=== PATIENT | male | born 1930 | race Caucasian/White ===

== ENCOUNTER 2017-06-07 08:37 | Outpatient (CLI) | payer MEDICARE, BC ==
[2017-06-07] VITALS (10 sets, daily range): BP systolic 135–166; BP diastolic 61–80
[~2017-06-07] VITALS: Ht 160 cm; Wt 76.2 kg
[2017-06-07] MEDS ORDERED: IV 1/2 NORMAL SALINE 1,000 ML IV SCH (09:07)
[2017-06-07 09:24] LABS: HEMATOCRIT 43.6 % (39.0-53.0); RED BLOOD COUNT 5.06 x10^6/uL (4.30-5.70); RED CELL DISTRIBUTION WIDTH 14.4 % (11.5-14.5); WHITE BLOOD COUNT 7.3 x10^3/uL (4.0-11.0)
[2017-06-07 09:36] LABS: CALCIUM 9.6 mg/dL (8.5-10.1); CREATININE 1.2 mg/dL (0.7-1.3); GFR 57.3; POTASSIUM 4.2 mmol/L (3.5-5.1)
[2017-06-07] MEDS ORDERED: IV NORMAL SALINE 1000ML BAG 1,000 ML IV ONE (10:00)
[2017-06-07] MEDS ORDERED: CHOL10003 PO (11:03)
[2017-06-07] MEDS ORDERED: RIVA20TA2 PO (11:03)
[2017-06-07] MEDS ORDERED: AMLO1CAP12 PO (11:03)
[2017-06-07] MEDS ORDERED: METO25TA9 PO (11:03)
[2017-06-07] MEDS ORDERED: LEVO125T5 PO (11:03)
[2017-06-07] MEDS ORDERED: ESOM40CA PO (11:03)
[2017-06-07] MEDS ORDERED: SIMV20TA3 PO (11:03)
[2017-06-07] MEDS ORDERED: LIDOCAINE 2% 20 ML VIAL. ONE (11:05)
[2017-06-07] MEDS ORDERED: IODIXANOL 320 MG/ML 100 ML VIAL. ONE (11:05)
[2017-06-07] MEDS ORDERED: fentaNYL PF VIAL 100 MCG/2 ML VIAL ONE (11:12)
[2017-06-07] MEDS ORDERED: MIDAZOLAM HCL/PF 5 MG/5 ML VIAL. ONE (11:13)
[2017-06-07] MEDS ORDERED: HEPARIN for IV BOLUS 10,000 UNIT/10 ML VIAL. ONE (11:31)
[2017-06-07] MEDS ORDERED: LIDOCAINE 2% 20 ML VIAL. IJ ONE (11:45)
[2017-06-07] MEDS ORDERED: IODIXANOL 320 MG/ML 100 ML VIAL. IART ONE (11:45)
[2017-06-07] MEDS ORDERED: MIDAZOLAM HCL/PF 5 MG/5 ML VIAL. IV ONE (11:45)
[2017-06-07] MEDS ORDERED: HEPARIN for IV BOLUS 10,000 UNIT/10 ML VIAL. IV ONE (11:45)
[2017-06-07] MEDS ORDERED: fentaNYL PF VIAL 100 MCG/2 ML VIAL IV ONE (11:45)
--- NOTE | 2017-06-07 14:37 | RAD ---
APPROVED REPORT Patient Location: IN-PATIENT Exam Type: Ankle to Brachial Index Indications PAD Pressures/Indices RightABI LeftABI Brachial 146mmHgBrachial 135mmHg Ankle(DP) 0mmHgNON COMPRESSAnkle(DP) 0mmHgNON COMPRESS Findings Ankle-brachial indices are as noted above. Due to severe lower extremity below-knee arterial disease the pressures at the ankles bilaterally were unable to be obtained. Overall this is suggestive of sev ere arterial insufficiency bilaterally with an SHARAN less than 0.5. Critical Notification Critical Value: No <Conclusion> 1. Severely abnormal bilateral ankle-brachial indices with nonpalpable pulses at the ankle level and noncompressible vessels.
--- NOTE | 2017-06-07 15:36 | CARD ---
APPROVED REPORT Patient StatusOUT-PATIENT Component Prep Operator: RT Mesha (R) Procedure(s) performed: Sedation Time: 66 Minutes Aortogram Bilateral peripheral run-off. HISTORY The patient is a 86 year-old male with a history of : tobacco history() , hypertension, dyslipidemia. INDICATION FOR PROCEDURE The indication(s) include : Bilateral claudication. PROCEDURE NARRATIVE After appropriate informed consent the patient was brought to the catheterization laboratory. The lef t groin was prepped and draped in usual sterile fashion. Under 2% lidocaine local anesthesia and fluo roscopic guidance a 6 [place]an introducer sheath was placed in the left common femoral artery via the m odified Seldinger technique. Next, a 5 [place]an Omni Flush catheter was placed in the abdominal aorta a nd digital subtraction angiography was performed. Subsequently the Omni Flush catheter was used to di rect a J-tipped guidewire into the right common iliac system. The Omni Flush catheter was exchanged f or a 4 [place]an angled glide catheter which was then placed in the right distal external iliac artery a nd right lower cavity runoff was performed. Finally, a left lower extremity runoff was performed thro ugh sheath injections. Findings: Aorta: Mild ectasia prior to the bifurcation with significant calcification. RCIA: Mild calcified disease. RIIA: Has a 50% stenosis at its origin and the distal vessels severely diseased. REIA: Mild calcified plaque of less than 20%. RCFA: Moderate diffuse eccentriv plaque of at least 60% with extension into profunda and SFA. RSFA: Heavily calcified and ostially occluded. The distal vessel reconstitutes at the level or the ad ductor canal. RPROF: Dominant vessel in the thigh giving robust collaterals to the distal SFA via the geniculate sy stem. This vessel also has mild diffuse irregularities of up to 50%. RPOP: Mild diffuse irregularities of up to 30% RAT: Proximally occluded. The distal vessel reconsitutes and provides run-off to the dorsal pedis are a. RPT: Proximally occluded. The distal vessel is not well seen. RPER: Proximall occluded. The distal vessel fills via popliteal collaterals and has faint run-off. LCIA: Mild calcified disease. LIIA: Has a 50% stenosis at its origin and the distal vessels severely diseased. NATALIIA: Mild calcified plaque of less than 20%. LCFA: Moderate diffuse eccentric plaque of at least 60% with extension into profunda and SFA. LSFA: Heavily calcified and ostially occluded. The distal vessel reconstitutes at the level or the ad ductor canal. LPROF: Dominant vessel in the thigh giving robust collaterals to the distal SFA via the geniculate sy stem. This vessel also has mild diffuse irregularities of up to 50%. LPOP: Mild diffuse irregularities of up to 30% RAT: Proximally occluded. The distal vessel is not well seen. RPT: Proximally occluded. The distal vessel is not well seen. LPER: Proximall occluded. Not well visualized. Conclusion 1. Bilateral stacy category 4 claudication, right > left 2. 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 3. One vessel run-off of the RLE and no significant run-off below the knee of the LLE. Recommendations Vascular surgery evaluation for possible RCFA endarterectomy as he has failed PVI by his prior cardio logist. Supportive care.
--- NOTE | 2017-06-07 18:14 | PDOC2 ---
CONSULT Date of Consult Date of Consult DATE: 06/07/17 TIME: 18:05 Current Medications Current Medications Current Medications Sodium Chloride 1,000 ml @ 100 mls/hr Q10H IV Last administered on 06/07/17 09:07; Start 06/07/17 at 09:07; Stop 06/07/17 at 16:19; Status DC Sodium Chloride 1,000 ml @ 125 mls/hr 1X ONCE IV Last administered on 09:59; Start 06/07/17 at 10:00; Stop 06/07/17 at 16:19; Status DC Lidocaine HCl 20 ml STK-MED ONCE .ROUTE ; Start 06/07/17 at 11:05; Stop at 11:06; Status DC Heparin Sodium/ Sodium Chloride 1,000 ml @ As Directed STK-MED ONCE .ROUTE ; Start 06/07/17 at 11:05; Stop 06/07/17 at 11:06; Status DC Iodixanol (Visipaque 320) 100 ml STK-MED ONCE .ROUTE ; Start 06/07/17 at 11:05; Stop 06/07/17 at 11:06; Status DC Fentanyl Citrate (Fentanyl 2ml Vial) 100 mcg STK-MED ONCE .ROUTE ; Start at 11:12; Stop 06/07/17 at 11:13; Status DC Midazolam HCl (Versed) 5 mg STK-MED ONCE .ROUTE ; Start 06/07/17 at 11:13; Stop 06/07/17 at 11:14; Status DC Heparin Sodium (Porcine) (Heparin Sodium) 10,000 unit STK-MED ONCE .ROUTE ; Start 06/07/17 at 11:31; Stop 06/07/17 at 11:32; Status DC Heparin Sodium/ Sodium Chloride 1,000 unit 1X ONCE IART Last administered on 12:06; Start 06/07/17 at 11:45; Stop 06/07/17 at 11:46; Status DC Heparin Sodium/ Sodium Chloride 1,000 unit 1X ONCE IART Last administered on 12:06; Start 06/07/17 at 11:45; Stop 06/07/17 at 11:46; Status DC Midazolam HCl (Versed) 5 mg 1X ONCE IV Last administered on 06/07/17 12:07; Start 06/07/17 at 11:45; Stop 06/07/17 at 11:46; Status DC Fentanyl Citrate (Fentanyl 2ml Vial) 100 mcg 1X ONCE IV Last administered on 12:07; Start 06/07/17 at 11:45; Stop 06/07/17 at 11:46; Status DC Iodixanol (Visipaque 320) 100 ml 1X ONCE IART ; Start 06/07/17 at 11:45; Stop 06/07/17 at 11:46; Status DC Heparin Sodium (Porcine) (Heparin Sodium) 4,000 unit 1X ONCE IV Last administered on 06/07/17 12:22; Start 06/07/17 at 11:45; Stop 06/07/17 at 11:46 ; Status DC Lidocaine HCl 20 ml 1X ONCE IJ Last administered on 06/07/17 12:06; Start at 11:45; Stop 06/07/17 at 11:46; Status DC Active Scripts Active Reported Xarelto (Rivaroxaban) 20 Mg Tablet 20 Mg PO DAILY Vitamin D3 (Cholecalciferol (Vitamin D3)) 1,000 Unit Tablet 1 Tab PO DAILY Simvastatin 20 Mg Tablet 1 Tab PO QHS Nexium Capsule (Esomeprazole Magnesium) 40 Mg Capsule.dr 1 Cap PO DAILY Metoprolol Succinate ( Xl ) (Metoprolol Succinate) 25 Mg Tab.er.24h 1 Tab PO DAILY Levothyroxine Sodium 125 Mcg Tablet 1 Tab PO DAILY Amlodipine-Benazepril 10-20 Mg (Amlodipine Besylate/Benazepril) 1 Each Capsule 1 Cap PO DAILY Allergies Allergies: Coded Allergies: No Known Drug Allergies (Unverified , 06/07/17) Vitals VITALS Vital Signs Date Time Temp Pulse Resp B/P (MAP) Pulse Ox O2 Delivery O2 Flow Rate FiO2 06/07/17 15:07 67 18 95 Room Air 06/07/17 09:29 98.0 164/80 (108) 98.0 Labs Labs Laboratory Tests Test 06/07/17 09:00 White Blood Count 7.3 x10^3/uL (4.0-11.0) Red Blood Count 5.06 x10^6/uL (4.30-5.70) Hemoglobin 15.0 g/dL (13.0-17.5) Hematocrit 43.6 % (39.0-53.0) Mean Corpuscular Volume 86 fL (79-100) Mean Corpuscular Hemoglobin 30 pg (25-35) Mean Corpuscular Hemoglobin Concent 34 g/dL (31-37) Red Cell Distribution Width 14.4 % (11.5-14.5) Platelet Count 179 x10^3/uL (140-400) Prothrombin Time 13.0 SEC (11.7-14.0) Prothromb Time International Ratio 1.0 (0.8-1.1) Sodium Level 142 mmol/L (136-145) Potassium Level 4.2 mmol/L (3.5-5.1) Chloride Level 104 mmol/L (98-107) Carbon Dioxide Level 27 mmol/L (21-32) Anion Gap 11 (6-14) Blood Urea Nitrogen 18 mg/dL (8-26) Creatinine 1.2 mg/dL (0.7-1.3) Estimated GFR (Cockcroft-Gault) 57.3 Glucose Level 108 mg/dL (70-99) Calcium Level 9.6 mg/dL (8.5-10.1) Laboratory Tests Test 06/07/17 09:00 White Blood Count 7.3 x10^3/uL (4.0-11.0) Red Blood Count 5.06 x10^6/uL (4.30-5.70) Hemoglobin 15.0 g/dL (13.0-17.5) Hematocrit 43.6 % (39.0-53.0) Mean Corpuscular Volume 86 fL (79-100) Mean Corpuscular Hemoglobin 30 pg (25-35) Mean Corpuscular Hemoglobin Concent 34 g/dL (31-37) Red Cell Distribution Width 14.4 % (11.5-14.5) Platelet Count 179 x10^3/uL (140-400) Prothrombin Time 13.0 SEC (11.7-14.0) Prothromb Time International Ratio 1.0 (0.8-1.1) Sodium Level 142 mmol/L (136-145) Potassium Level 4.2 mmol/L (3.5-5.1) Chloride Level 104 mmol/L (98-107) Carbon Dioxide Level 27 mmol/L (21-32) Anion Gap 11 (6-14) Blood Urea Nitrogen 18 mg/dL (8-26) Creatinine 1.2 mg/dL (0.7-1.3) Estimated GFR (Cockcroft-Gault) 57.3 Glucose Level 108 mg/dL (70-99) Calcium Level 9.6 mg/dL (8.5-10.1) Assessment/Plan Assessment/Plan Vascular consult dictated. Imp: 1. disabling claudication right leg, mild claudication left leg 2. 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 Superficial femoral artery is occluded. 3. hx of tobaccosism Plan: angio reviewed and options discussed with patient during his outpatient cath. procedure 1. right common and origin profunda femoral endarterectomy with patch closure, elective. LISSETTE HOOKER II, MD Jun 07, 2017 18:14
--- NOTE | 2017-06-07 20:22 | CONS ---
DATE OF CONSULTATION: CLINICAL HISTORY: This is an 86-year-old gentleman, who has disabling claudication of the right leg and mild claudication of the left leg. He presented today for outpatient catheterization by Dr. Blandon. The images were reviewed. 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 The right superficial femoral artery was occluded. There was single vessel runoff via the anterior tibial artery on the right. The patient has isyj-an-ydoontpt stenotic lesions, affecting the left common femoral artery as well, again with left superficial femoral artery occlusion. He is not symptomatic, however, in his right leg. PAST MEDICAL HISTORY: Reviewed. MEDICATIONS: He is on medications as follows: Xarelto, simvastatin, metoprolol, levothyroxine, and amlodipine. ALLERGIES: None known. REVIEW OF SYSTEMS: Other than what was mentioned in the history, is negative. He denies chest pain or shortness of breath. He denies any history of atherosclerotic heart disease or stroke. PHYSICAL EXAMINATION: GENERAL: The patient is alert and awake. NECK: Carotids are 2+. ABDOMEN: Soft and nontender. CHEST: Clear. CARDIOVASCULAR: Heart sounds are normal. EXTREMITIES: He has absent bilateral femoral pulses, absent popliteal and pedal pulses. IMPRESSION: 1. Disabling claudication of the right leg with mild claudication of the left leg. 2. 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 3. Hypertension, hypertension. PLAN: Proceed with elective right common femoral artery and proximal profunda femoris artery endarterectomy with bovine patch. He has excellent collaterals and it is hopeful that this will provide enough antegrade flow to relieve his symptoms for the most part. We will schedule electively. LISSETTE HOOKER MD DR: JOESPH/nicolle JOB#: [id number] / [id number]
== END 2017-06-07 15:40 | disposition home or self-care (01) ==
LOC: CCL 08:37
PROVIDERS: ATTEND Internal Medicine Cardiovascular Disease
DX: I70.213 Atherosclerosis of native arteries of extremities with intermittent claudication, bilateral legs (principal); I10 Essential (primary) hypertension; E78.5 Hyperlipidemia, unspecified; I77.819 Aortic ectasia, unspecified site; I73.9 Peripheral vascular disease, unspecified; K21.9 Gastro-esophageal reflux disease without esophagitis; E03.9 Hypothyroidism, unspecified; F17.200 Nicotine dependence, unspecified, uncomplicated; Z86.39 Personal history of other endocrine, nutritional and metabolic disease
CPT/HCPCS: 36415; 75630; 80048; 85027; 85610; 93922; 99152; 99153; C1769; C1892; J1644; J2250; J3010; J7030; Q9966; J2001

== ENCOUNTER 2017-06-11 07:30 | Inpatient (IN) | payer MEDICARE, BC ==
[~2017-06-11] VITALS: Ht 160 cm; Wt 72.3 kg
[~2017-06-11 07:30] MED LIST: AMLO1CAP12 PO; CHOL10003 PO; ESOM40CA PO; LEVO125T5 PO; METO-239 PO; RIVA20TA2 PO; SIMV20TA3 PO
[2017-07-24] MEDS ORDERED: MORPHINE SULFATE 4 MG/ML DISP.SYRIN. IV PRN (12:15)
[2017-07-25] VITALS (9 sets, daily range): BP systolic 111–137; BP diastolic 59–68
[2017-07-25] MEDS ORDERED: HEPARIN SODIUM 5,000 UNIT in IV NORMAL SALINE 500ML BAG 500 ML IRR ONE (06:00)
[2017-07-25] MEDS ORDERED: IOHEXOL 300 MG/ML 50 ML VIAL. ONE (06:03)
[2017-07-25] MEDS ORDERED: SURGICEL FIBRILLAR 1X2 EACH. ONE (06:03)
[2017-07-25] MEDS ORDERED: fentaNYL PF VIAL 100 MCG/2 ML VIAL ONE (06:23)
[2017-07-25] MEDS ORDERED: LIDOCAINE 2% PF Vial for OR 5 ML VIAL. ONE (06:23)
[2017-07-25] MEDS ORDERED: PROPOFOL 20 ML IV ONE (06:23)
[2017-07-25] MEDS ORDERED: ONDANSETRON PF 4 MG/2 ML VIAL. ONE (06:23)
[2017-07-25] MEDS ORDERED: DEXAMETHASONE SOD PHOS 20 MG/5 ML VIAL. ONE (06:23)
[2017-07-25] MEDS ORDERED: ASPI-482 PO (06:46)
[2017-07-25 06:51] LABS: BASO # 0.1 x10^3/uL (0.0-0.2); BASO % 1 % (0-3); EOS % 4 % (0-3); HEMATOCRIT 45.4 % (39.0-53.0); HEMOGLOBIN 15.4 g/dL (13.0-17.5); LYMPH # 1.4 x10^3/uL (1.0-4.8); LYMPH % 18 % (24-48); MEAN CORPUSCULAR HEMOGLOBIN 29 pg (25-35); MEAN CORPUSCULAR HGB CONC 34 g/dL (31-37); MEAN CORPUSCULAR VOLUME 86 fL (79-100); MONO % 10 % (0-9); NEUT % 66 % (31-73); PLATELET COUNT 177 x10^3/uL (140-400); RED BLOOD COUNT 5.25 x10^6/uL (4.30-5.70); RED CELL DISTRIBUTION WIDTH 14.2 % (11.5-14.5); WHITE BLOOD COUNT 7.5 x10^3/uL (4.0-11.0)
[2017-07-25 06:52] LABS: CALCIUM 9.9 mg/dL (8.5-10.1); CREATININE 1.2 mg/dL (0.7-1.3); GFR 57.3; POTASSIUM 4.3 mmol/L (3.5-5.1)
[2017-07-25] MEDS ORDERED: PROCHLORPERAZINE 10 MG/2 ML VIAL. IV PRN (07:00)
[2017-07-25] MEDS ORDERED: IV RINGERS,LACTATED 1000ML 1,000 ML IV SCH (07:00)
[2017-07-25] MEDS ORDERED: ONDANSETRON PF 4 MG/2 ML VIAL. IV PRN ×2 (07:00→10:45)
[2017-07-25] MEDS ORDERED: HYDROmorphone 2 MG/ML VIAL IV PRN (07:00)
[2017-07-25] MEDS ORDERED: LIDOCAINE 1% PF 2 ML VIAL. ID PRN (07:00)
[2017-07-25] MEDS ORDERED: fentaNYL PF VIAL 100 MCG/2 ML VIAL IV PRN ×2 (07:00)
[2017-07-25] MEDS ORDERED: ROCURONIUM 100 MG/10 ML VIAL. ONE (07:13)
[2017-07-25] MEDS ORDERED: PHENYLEPHRINE in 0.9% NACL PF 1 MG/10 ML DISP.SYRIN. IV ONE ×2 (07:44→10:18)
[2017-07-25] MEDS ORDERED: HEPARIN for IV BOLUS 10,000 UNIT/10 ML VIAL. ONE (08:00)
[2017-07-25] MEDS ORDERED: NEOSTIGMINE METHYLSULFATE 5 MG/5 ML SYRINGE. ONE (08:50)
[2017-07-25] MEDS ORDERED: DESFLURANE 61 TO 120 MINUTES IH ONE (08:51)
[2017-07-25] MEDS ORDERED: GLYCOPYRROLATE 1 MG/5 ML VIAL. ONE (08:51)
--- NOTE | 2017-07-25 10:40 | PDOC ---
BRIEF OPERATIVE NOTE Date: Jul 25, 2017 Pre-Op Diagnosis Right femoral stenosis Post-Op Diagnosis same Procedure Performed Right common femoral endarterectomy with bovine patch angioplasty Surgeon Dr. Hook Channel Lip Stiffener Insoles Kedar Rivers NP Anesthesia Type: General Blood Loss 500cc Specimens Obtained none Findings severe femoral stenosis, Complications none KEDAR RIVERS DELIVERY TECHNICIAN Jul 25, 2017 10:40
[2017-07-25] MEDS ORDERED: MORPHINE SULFATE 4 MG/ML DISP.SYRIN. IV PRN (10:45)
[2017-07-25] MEDS ORDERED: MAG HYDROX/ALUMINUM HYD/SIMETH 30 ML ORAL.SUSP PO PRN (10:45)
[2017-07-25] MEDS ORDERED: LABETALOL 20 MG/4 ML DISP.SYRIN. IVP PRN (10:45)
[2017-07-25] MEDS ORDERED: NALOXONE 0.4 MG/ML VIAL. IV PRN (10:45)
[2017-07-25] MEDS ORDERED: hydrALAZINE 20 MG/ML VIAL. IVP PRN (10:45)
[2017-07-25] MEDS ORDERED: diphenhydrAMINE HCL 25 MG CAPSULE PO PRN (10:45)
[2017-07-25] MEDS ORDERED: CALCIUM CARBONATE 500 MG TAB.CHEW PO PRN (10:45)
[2017-07-25] MEDS ORDERED: oxyCODONE IR 5 MG TABLET PO PRN (10:45)
[2017-07-25] MEDS ORDERED: ACETAMINOPHEN 325 MG TABLET. PO PRN (10:45)
[2017-07-25] MEDS ORDERED: 0.9 % SODIUM CHLORIDE 10 ML DISP.SYRIN. IV PRN (10:45)
[2017-07-25] MEDS ORDERED: oxyCODONE/APAP 5/325 1 TAB TABLET PO PRN ×2 (10:45)
[2017-07-25] MEDS ORDERED: diphenhydrAMINE 50 MG/ML VIAL IV PRN (10:45)
[2017-07-25] MEDS: LISINOPRIL 20 MG TABLET PO SCH (12:00)
[2017-07-25] MEDS: amLODIPine BESYLATE 10 MG TABLET PO SCH (12:00)
[2017-07-25] MEDS: ASPIRIN ENTERIC COATED 81 MG TABLET.DR. PO SCH (12:00)
[2017-07-25] MEDS: IV NORMAL SALINE 1000ML BAG 1,000 ML IV SCH ×2 (12:15→20:31)
[2017-07-25] MEDS: CHOLECALCIFEROL (VITAMIN D3) 1,000 UNIT TABLET PO SCH (12:16)
[2017-07-25] MEDS: SENNOSIDES/DOCUSATE 8.6/50MG TABLET. PO SCH ×2 (12:16→20:55)
[2017-07-25] MEDS: METOPROLOL SUCC 24HR ER 25 MG TAB.ER.24H. PO SCH (12:16)
--- NOTE | 2017-07-25 13:40 | OP ---
DATE OF SURGERY: 07/25/2017 PREOPERATIVE DIAGNOSIS: Arterial insufficiency of the right lower extremity due to severe preocclusive common femoral and profunda femoris plaque. POSTOPERATIVE DIAGNOSIS: Arterial insufficiency of the right lower extremity due to severe preocclusive common femoral and profunda femoris plaque. OPERATIONS PERFORMED: Extensive endarterectomy of the distal external iliac, common femoral and profunda femoris arteries with bovine patch angioplasty. SURGEON: Lissette Hooker MD. STEAM TABLE WORKER: FERCHO Jiang. ANESTHESIA: General. ESTIMATED BLOOD LOSS: 500 mL. SPECIMENS: Plaque, not sent to pathology. DRAINS: None. INDICATIONS: This is a gentleman who has lifestyle limiting claudication of the right lower extremity, worse than the left. He underwent cardiac catheterization and angiographic evaluation. This revealed a preocclusive stenosis, diffuse, of the right common femoral artery, and extending into the origin of the profunda femoris arteries. The superficial femoral artery is occluded at its origin. The operation risks and benefits were explained. He understood and wished to proceed. OPERATIVE FINDINGS: Extensive severe cauliflower type plaque, extending from the distal external iliac artery to the third branch point of the profunda femoris artery. This required extensive endarterectomy. A pantaloon patch angioplasty was performed of the vessels using a bovine patch. Following the procedure, the patient had Doppler arterial flow in the foot. DESCRIPTION OF PROCEDURE: General anesthetic was administered and a Ling catheter was placed. The patient was given 2 mg of IV antibiotics. The right groin was prepped and draped in usual manner. An Ioban occlusive dressing was placed over the skin. The femoral pulse was not palpable. An incision was made in the right groin longitudinally. The vessel was palpated, but not pulsatile. It was extremely calcified. The inguinal ligament was divided and a mechanical retractor was placed for proximal control. Some crossing veins were ligated and divided. The distal external iliac artery, just beyond 2 large branches contained a soft spot anteriorly. A vessel loop was placed in this location. All branches were then isolated and encircled with vessel loops. The profunda had 2 main branches, a deep and a lateral branch. There was extreme calcification in those branches, extending down to the secondary level branching. This was all dissected out. The femoral nerve was carefully identified and preserved. The crossing vein branches were ligated and divided. The patient was then given 5000 units of heparin. A Satinsky clamp was placed on the distal external iliac artery. An arteriotomy was then chiseled into the anterior common femoral artery and then extended proximally and distally. Distally, it was extended for approximately an qskk-yfr-n-half down onto the main lateral branch of the profunda femoris artery. A meticulous endarterectomy was performed of all of these vessels. The plaque was extensive and the remaining adventitia were quite thin. A bovine patch was then placed. The distal was obtained on the profunda and was felt to be a satisfactory, with no significant . Again there were 2 main branches of the deep femoral artery. A bovine patch was then sutured into place using a 6-0 Prolene. Prior to completing the patch closure, the vessels were flushed appropriately. Flow was then restored. No protamine was given. The wounds were irrigated with antibiotic irrigation. Suture line leaks were repaired with interrupted 6-0 Prolene sutures. Doppler flow was then assessed in the outflow profunda femoris arteries and the flow was continuous, nonocclusive. Copious irrigation with antibiotic solution was then carried out. The wound was then closed in 2 layers with 2-0 and 3-0 Vicryl, the skin with kimberly. Sterile dressings were applied. Doppler flow then was assessed in the foot as above. The patient tolerated the procedure well. LISSETTE HOOKER MD DR: JOESPH/nicolle JOB#: [id number] / [id number]
[2017-07-25] MEDS: PANTOPRAZOLE 40 MG TABLET.DR. PO SCH (16:56)
[2017-07-25] MEDS: ATORVASTATIN CALCIUM 10 MG TABLET. PO SCH (20:56)
[2017-07-25] MEDS: ZOLPIDEM 5 MG TABLET. PO PRN (23:09)
[2017-07-26 02:44] VITALS: BP 101/49
[2017-07-26] MEDS: IV NORMAL SALINE 1000ML BAG 1,000 ML IV SCH (05:42)
[2017-07-26] MEDS: LEVOTHYROXINE 125 MCG TABLET PO SCH (06:25)
[2017-07-26] MEDS: PANTOPRAZOLE 40 MG TABLET.DR. PO SCH (06:25)
[2017-07-26 07:00] VITALS: BP 142/64
[2017-07-26 07:16] LABS: BASO % 0 % (0-3); EOS % 0 % (0-3); HEMATOCRIT 37.9 % (39.0-53.0); HEMOGLOBIN 12.7 g/dL (13.0-17.5); LYMPH # 0.8 x10^3/uL (1.0-4.8); LYMPH % 7 % (24-48); MEAN CORPUSCULAR HEMOGLOBIN 29 pg (25-35); MEAN CORPUSCULAR HGB CONC 34 g/dL (31-37); MEAN CORPUSCULAR VOLUME 87 fL (79-100); MONO % 9 % (0-9); NEUT % 83 % (31-73); PLATELET COUNT 164 x10^3/uL (140-400); RED BLOOD COUNT 4.36 x10^6/uL (4.30-5.70); WHITE BLOOD COUNT 11.5 x10^3/uL (4.0-11.0)
[2017-07-26 07:27] LABS: CALCIUM 9.1 mg/dL (8.5-10.1); CREATININE 1.1 mg/dL (0.7-1.3); GFR 63.3; MAGNESIUM 1.9 mg/dL (1.8-2.4); PHOSPHORUS 3.7 mg/dL (2.6-4.7); POTASSIUM 4.3 mmol/L (3.5-5.1)
[2017-07-26] MEDS: amLODIPine BESYLATE 10 MG TABLET PO SCH (08:45)
[2017-07-26] MEDS: SENNOSIDES/DOCUSATE 8.6/50MG TABLET. PO SCH ×2 (08:45→20:18)
[2017-07-26] MEDS: CHOLECALCIFEROL (VITAMIN D3) 1,000 UNIT TABLET PO SCH (08:45)
[2017-07-26] MEDS: METOPROLOL SUCC 24HR ER 25 MG TAB.ER.24H. PO SCH (08:45)
[2017-07-26] MEDS: ASPIRIN ENTERIC COATED 81 MG TABLET.DR. PO SCH (08:45)
[2017-07-26] MEDS: LISINOPRIL 20 MG TABLET PO SCH (09:00)
[2017-07-26] MEDS ORDERED: ELECTROLYTE (NON-ICU) PROTOCOL MC SCH (09:00)
[2017-07-26 11:00] VITALS: BP 134/60
[2017-07-26] MEDS ORDERED: FLU VACC QS2017-18 (36MOS+)/PF 0.5 ML SYRINGE. VAX IM ONE (12:15)
--- NOTE | 2017-07-26 14:50 | PDOC ---
SURGICAL PROGRESS NOTE Subjective no complaints. Hasn't voided yet post cath removal. Ambulating some Vital Signs Vital Signs Date Time Temp Pulse Resp B/P (MAP) Pulse Ox O2 Delivery O2 Flow Rate FiO2 07/26/17 12:00 94 Room Air 2.0 07/26/17 11:02 18 07/26/17 11:00 98.1 64 134/60 (84) 98.1 I&O Intake and Output 07/27/17 07:00 Intake Total 220 ml Output Total 425 ml Balance -205 ml Intake Oral 220 ml Output Urine Total 425 ml Extremities: Other (right foot warm with excellent doppler flow. Dressing right groin dry) Labs Laboratory Tests Test 07/25/17 06:29 07/26/17 06:55 White Blood Count 7.5 x10^3/uL (4.0-11.0) 11.5 x10^3/uL (4.0-11.0) Red Blood Count 5.25 x10^6/uL (4.30-5.70) 4.36 x10^6/uL (4.30-5.70) Hemoglobin 15.4 g/dL (13.0-17.5) 12.7 g/dL (13.0-17.5) Hematocrit 45.4 % (39.0-53.0) 37.9 % (39.0-53.0) Mean Corpuscular Volume 86 fL (79-100) 87 fL (79-100) Mean Corpuscular Hemoglobin 29 pg (25-35) 29 pg (25-35) Mean Corpuscular Hemoglobin Concent 34 g/dL (31-37) 34 g/dL (31-37) Red Cell Distribution Width 14.2 % (11.5-14.5) 14.0 % (11.5-14.5) Platelet Count 177 x10^3/uL (140-400) 164 x10^3/uL (140-400) Neutrophils (%) (Auto) 66 % (31-73) 83 % (31-73) Lymphocytes (%) (Auto) 18 % (24-48) 7 % (24-48) Monocytes (%) (Auto) 10 % (0-9) 9 % (0-9) Eosinophils (%) (Auto) 4 % (0-3) 0 % (0-3) Basophils (%) (Auto) 1 % (0-3) 0 % (0-3) Neutrophils # (Auto) 4.9 x10^3uL (1.8-7.7) 9.5 x10^3uL (1.8-7.7) Lymphocytes # (Auto) 1.4 x10^3/uL (1.0-4.8) 0.8 x10^3/uL (1.0-4.8) Monocytes # (Auto) 0.8 x10^3/uL (0.0-1.1) 1.1 x10^3/uL (0.0-1.1) Eosinophils # (Auto) 0.3 x10^3/uL (0.0-0.7) 0.0 x10^3/uL (0.0-0.7) Basophils # (Auto) 0.1 x10^3/uL (0.0-0.2) 0.0 x10^3/uL (0.0-0.2) Prothrombin Time 13.0 SEC (11.7-14.0) Prothromb Time International Ratio 1.0 (0.8-1.1) Activated Partial Thromboplast Time 27 SEC (24-38) Sodium Level 142 mmol/L (136-145) 138 mmol/L (136-145) Potassium Level 4.3 mmol/L (3.5-5.1) 4.3 mmol/L (3.5-5.1) Chloride Level 106 mmol/L (98-107) 103 mmol/L (98-107) Carbon Dioxide Level 25 mmol/L (21-32) 27 mmol/L (21-32) Anion Gap 11 (6-14) 8 (6-14) Blood Urea Nitrogen 18 mg/dL (8-26) 18 mg/dL (8-26) Creatinine 1.2 mg/dL (0.7-1.3) 1.1 mg/dL (0.7-1.3) Estimated GFR (Cockcroft-Gault) 57.3 63.3 Glucose Level 122 mg/dL (70-99) 136 mg/dL (70-99) Calcium Level 9.9 mg/dL (8.5-10.1) 9.1 mg/dL (8.5-10.1) Phosphorus Level 3.7 mg/dL (2.6-4.7) Magnesium Level 1.9 mg/dL (1.8-2.4) Laboratory Tests Test 07/26/17 06:55 White Blood Count 11.5 x10^3/uL (4.0-11.0) Red Blood Count 4.36 x10^6/uL (4.30-5.70) Hemoglobin 12.7 g/dL (13.0-17.5) Hematocrit 37.9 % (39.0-53.0) Mean Corpuscular Volume 87 fL (79-100) Mean Corpuscular Hemoglobin 29 pg (25-35) Mean Corpuscular Hemoglobin Concent 34 g/dL (31-37) Red Cell Distribution Width 14.0 % (11.5-14.5) Platelet Count 164 x10^3/uL (140-400) Neutrophils (%) (Auto) 83 % (31-73) Lymphocytes (%) (Auto) 7 % (24-48) Monocytes (%) (Auto) 9 % (0-9) Eosinophils (%) (Auto) 0 % (0-3) Basophils (%) (Auto) 0 % (0-3) Neutrophils # (Auto) 9.5 x10^3uL (1.8-7.7) Lymphocytes # (Auto) 0.8 x10^3/uL (1.0-4.8) Monocytes # (Auto) 1.1 x10^3/uL (0.0-1.1) Eosinophils # (Auto) 0.0 x10^3/uL (0.0-0.7) Basophils # (Auto) 0.0 x10^3/uL (0.0-0.2) Sodium Level 138 mmol/L (136-145) Potassium Level 4.3 mmol/L (3.5-5.1) Chloride Level 103 mmol/L (98-107) Carbon Dioxide Level 27 mmol/L (21-32) Anion Gap 8 (6-14) Blood Urea Nitrogen 18 mg/dL (8-26) Creatinine 1.1 mg/dL (0.7-1.3) Estimated GFR (Cockcroft-Gault) 63.3 Glucose Level 136 mg/dL (70-99) Calcium Level 9.1 mg/dL (8.5-10.1) Phosphorus Level 3.7 mg/dL (2.6-4.7) Magnesium Level 1.9 mg/dL (1.8-2.4) Assessment/Plan Imp: stable post op right femoral endarterectomy with patch angioplasty Plan: probable discharge in am. f/u in 2 weeks. Problems: LISSETTE HOOKER II, MD Jul 26, 2017 14:50
[2017-07-26 15:00] VITALS: BP 103/53
[2017-07-26 19:16] VITALS: BP 144/70
[2017-07-26] MEDS: ATORVASTATIN CALCIUM 10 MG TABLET. PO SCH (20:18)
[2017-07-26] MEDS: ZOLPIDEM 5 MG TABLET. PO PRN (22:16)
[2017-07-26 23:21] VITALS: BP 136/65
[2017-07-27 03:26] VITALS: BP 118/71
[2017-07-27] MEDS: LEVOTHYROXINE 125 MCG TABLET PO SCH (06:22)
[2017-07-27] MEDS: PANTOPRAZOLE 40 MG TABLET.DR. PO SCH (06:22)
[2017-07-27 07:00] VITALS: BP 138/70
--- NOTE | 2017-07-27 07:54 | PDOC ---
SURGICAL PROGRESS NOTE Subjective no complaints. Voiding ok, Ambulating Vital Signs Vital Signs Date Time Temp Pulse Resp B/P (MAP) Pulse Ox O2 Delivery O2 Flow Rate FiO2 07/27/17 06:28 20 97 Room Air 07/27/17 03:26 98.1 69 118/71 (87) 98.1 07/26/17 20:00 2.0 Extremities: Other (dressing dry, warm foot, good doppler flow) Labs Laboratory Tests Test 07/26/17 06:55 White Blood Count 11.5 x10^3/uL (4.0-11.0) Red Blood Count 4.36 x10^6/uL (4.30-5.70) Hemoglobin 12.7 g/dL (13.0-17.5) Hematocrit 37.9 % (39.0-53.0) Mean Corpuscular Volume 87 fL (79-100) Mean Corpuscular Hemoglobin 29 pg (25-35) Mean Corpuscular Hemoglobin Concent 34 g/dL (31-37) Red Cell Distribution Width 14.0 % (11.5-14.5) Platelet Count 164 x10^3/uL (140-400) Neutrophils (%) (Auto) 83 % (31-73) Lymphocytes (%) (Auto) 7 % (24-48) Monocytes (%) (Auto) 9 % (0-9) Eosinophils (%) (Auto) 0 % (0-3) Basophils (%) (Auto) 0 % (0-3) Neutrophils # (Auto) 9.5 x10^3uL (1.8-7.7) Lymphocytes # (Auto) 0.8 x10^3/uL (1.0-4.8) Monocytes # (Auto) 1.1 x10^3/uL (0.0-1.1) Eosinophils # (Auto) 0.0 x10^3/uL (0.0-0.7) Basophils # (Auto) 0.0 x10^3/uL (0.0-0.2) Sodium Level 138 mmol/L (136-145) Potassium Level 4.3 mmol/L (3.5-5.1) Chloride Level 103 mmol/L (98-107) Carbon Dioxide Level 27 mmol/L (21-32) Anion Gap 8 (6-14) Blood Urea Nitrogen 18 mg/dL (8-26) Creatinine 1.1 mg/dL (0.7-1.3) Estimated GFR (Cockcroft-Gault) 63.3 Glucose Level 136 mg/dL (70-99) Calcium Level 9.1 mg/dL (8.5-10.1) Phosphorus Level 3.7 mg/dL (2.6-4.7) Magnesium Level 1.9 mg/dL (1.8-2.4) Assessment/Plan Imp: 1. doing well post op Plan: discharge today. F/u in 2 weeks. Instructions given. Problems: LISSETTE HOOKER II, MD Jul 27, 2017 07:54
--- NOTE | 2017-07-27 08:21 | DS ---
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 OPERATION PERFORMED: Right external iliac, common femoral and profunda femoris extensive endarterectomy with bovine patch angioplasty. SUMMARY: This is a pleasant 86-year-old gentleman who has disabling claudication of the right leg due to the above. He underwent the procedure as listed above. He did well post procedure. He was discharged on postoperative day #2. At that time, he was eating, ambulating, flatulating. His incision is healing satisfactorily and he has a nice warm foot. DISPOSITION: Home. Follow up in 2 weeks. Discharge instructions were given. He is to resume all of his prehospital medications plus [place] for pain. ROWENA MIRELES MD DR: FRANCISCO/nicolle JOB#: [id number] / [id number]
[2017-07-27] MEDS: ASPIRIN ENTERIC COATED 81 MG TABLET.DR. PO SCH (08:38)
[2017-07-27] MEDS: METOPROLOL SUCC 24HR ER 25 MG TAB.ER.24H. PO SCH (08:38)
[2017-07-27] MEDS: CHOLECALCIFEROL (VITAMIN D3) 1,000 UNIT TABLET PO SCH (08:38)
[2017-07-27] MEDS: SENNOSIDES/DOCUSATE 8.6/50MG TABLET. PO SCH (08:38)
[2017-07-27 08:39] VITALS: BP 138/70
[2017-07-27] MEDS: LISINOPRIL 20 MG TABLET PO SCH (08:39)
[2017-07-27] MEDS: amLODIPine BESYLATE 10 MG TABLET PO SCH (08:39)
[2017-07-27] MEDS ORDERED: HYDR-2758 PO ×3 (09:23→09:28)
== END 2017-07-27 10:30 | disposition home or self-care (01) | DRG 271 ==
LOC: OPSVCIP 07-25 05:43 → 2 NORTH 07-25 11:42
PROVIDERS: ADMIT Surgery; ATTEND Surgery
PROC: 04CK0ZZ Extirpation of Matter from Right Femoral Artery, Open Approach (ICD-10-PCS; 2017-07-25)
PROC: 04UK0KZ Supplement Right Femoral Artery with Nonautologous Tissue Substitute, Open Approach (ICD-10-PCS; 2017-07-25)
PROC: 04CH0ZZ Extirpation of Matter from Right External Iliac Artery, Open Approach (ICD-10-PCS; principal; 2017-07-25 07:30)
DX: I70.211 Atherosclerosis of native arteries of extremities with intermittent claudication, right leg (principal); R71.0 Precipitous drop in hematocrit
CPT/HCPCS: 36415; 80048; 83735; 84100; 85025; 85610; 85730; 90686; 93306; J0360; J0690; J1100; J1644; J2370; J2405; J2704; J2710; J3010; J3490; J7030; J7040; J7120; Q9967; J2001

== ENCOUNTER → 2017-07-23 | Outpatient (CLI) | payer MEDICARE, BC ==
[2017-06-07 15:07] VITALS: BP 166/72
[~2017-07-23] MED LIST changes: +ASPI-482 PO; +HYDR-2758 PO
--- NOTE | 2017-07-23 12:27 | CARD ---
APPROVED REPORT EXAM: Two-dimensional and M-mode echocardiogram with Doppler and color Doppler. Other Information Quality : Good INDICATION Aortic Valve Disease Peripheral Arterial Disease 2D DIMENSIONS RVDd2.6 (2.9-3.5cm)Left Atrium(2D)3.7 (1.6-4.0cm) IVSd1.1 (0.7-1.1cm)Aortic Root(2D)2.9 (2.0-3.7cm) LVDd4.2 (3.9-5.9cm)LVOT Diameter1.9 (1.8-2.4cm) PWd1.2 (0.7-1.1cm)LVDs2.0 (2.5-4.0cm) FS (%) 30.0 %SV64.7 ml LVEF(%)60.0 (>50%) Aortic Valve AoV Peak John.315.4cm/sAoV VTI72.2cm AO Peak GR.39.8mmHgLVOT Peak John.111.5cm/s AO Mean GR.25mmHgAVA (VMAX)1.03cm2 EMORY (VTI)1.63ql0SY P 1/2 [id number] Mitral Valve MV E Hfqxttij531.8cm/sMV DECEL [id number] MV A Quixfszv252.5cm/sE/A Ratio0.9 Tricuspid Valve TR P. Jhsbfvdu192wm/sRAP OQOFWDYO8euPu TR Peak Gr.44wpYgPTSA27jgIc Pulmonary Vein S1 Cijjdxqt94.2cm/sD2 Hppnoxad26.3cm/s PVa [id number] LEFT VENTRICLE The left ventricle is normal size. There is mild asymmetric posterior wall hypertrophy. The left vent ricular systolic function is normal. The ejection fraction is 55-60%. There is normal LV segmental wa ll motion. Transmitral Doppler flow pattern is Grade I-abnormal relaxation pattern. RIGHT VENTRICLE The right ventricle is normal size. The right ventricular systolic function is normal. ATRIA The left atrium size is normal. The right atrium size is normal. The interatrial septum is intact wit h no evidence for an atrial septal defect or patent foramen ovale as noted on 2-D or Doppler imaging. AORTIC VALVE The aortic valve is calcified and displays decreased opening. Doppler and Color Flow revealed mild to moderate aortic regurgitation. Calculated aortic valve area is 1.0 cm2 with maximum pressure gradien t of 40 mmHg and mean pressure gradient of 25 mmHg. Doppler and color-flow analysis revealed moderate aortic stenosis. MITRAL VALVE The mitral valve is mildly thickened but opens well. There is no evidence of mitral valve prolapse. T here is no mitral valve stenosis. Doppler and Color-flow revealed trace to mild mitral regurgitation. TRICUSPID VALVE The tricuspid valve is normal in structure and function. Doppler and Color Flow revealed trace to mil d tricuspid regurgitation. The PA pressure was estimated at 38 mmHg. There is no tricuspid valve sten osis. PULMONIC VALVE The pulmonary valve is normal in structure and function. Doppler and Color Flow revealed mild pulmoni c valvular regurgitation. There is no pulmonic valvular stenosis. GREAT VESSELS The aortic root is normal in size. The ascending aorta is mildly dilated at 3.9 cm. The IVC was not v isualized. PERICARDIAL EFFUSION There is no evidence of significant pericardial effusion. Critical Notification Critical Value: No <Conclusion> The left ventricle is normal size. The left ventricular systolic function is normal. The ejection fraction is 55-60%. There is mild asymmetric posterior wall hypertrophy. The aortic valve is calcified and displays decreased opening. Calculated aortic valve area is 1.0 cm2 with maximum pressure gradient of 40 mmHg and mean pressure g radient of 25 mmHg. Doppler and color-flow analysis revealed moderate aortic stenosis. Doppler and Color Flow revealed mild to moderate aortic regurgitation. Doppler and Color-flow revealed trace to mild mitral regurgitation. Doppler and Color Flow revealed trace to mild tricuspid regurgitation. The PA pressure was estimated at 38 mmHg. The ascending aorta is mildly dilated at 3.9 cm.
== END | disposition home or self-care (01) ==
LOC: ECHO 09:04
PROVIDERS: ATTEND Internal Medicine Cardiovascular Disease
DX: I73.9 Peripheral vascular disease, unspecified (principal)
CPT/HCPCS: 93306

== ENCOUNTER → 2017-08-13 | Outpatient (CLI) | payer MEDICARE, BC ==
[2017-07-27 08:39] VITALS: BP 138/70
--- NOTE | 2017-08-13 13:42 | RAD ---
Right lower extremity venous ultrasound, 08/13/2017 : History: thigh pain and swelling, previous arterial surgery Duplex evaluation including grayscale, color flow and spectral Doppler analysis was performed. The femoral and popliteal veins show no filling defects to suggest DVT. The visualized deep veins in the right calf are unremarkable. There is a 2.4 cm fluid collection at the right groin without internal color flow. This lies at the level of surgical kimberly and is most likely an old seroma or hematoma. IMPRESSION: 1. There is no sonographic evidence of deep vein thrombosis in the right lower extremity. 2. Small fluid collection at the right groin, most likely a postoperative seroma. Right lower extremity arterial ultrasound, 08/13/2017: Duplex evaluation of the major arteries in the right lower extremity was performed including grayscale, color-flow and spectral Doppler analysis The right common femoral artery demonstrates a monophasic blood flow. The peak systolic velocity is 114 cm/s. There is moderate atherosclerotic plaquing. Monophasic blood flow is present in the right profunda femoris artery. The superficial femoral artery is occluded in the proximal to mid thigh. A short segment of weak monophasic blood flow is seen in the superficial femoral artery in the distal thigh. No blood flow could be identified in the right popliteal artery. In the right lower leg there is weak monophasic blood flow evident in the posterior tibial, peroneal and anterior tibial arteries. Similar poor blood flow is present in the right dorsalis pedis artery. IMPRESSION: 1. Patent right common femoral and profunda femoris arteries demonstrating monophasic blood flow. 2. Chronic right superficial femoral arterial occlusion, also evident on the arteriogram of 06/07/2017. 3. Right popliteal artery occlusion, apparently new since the 06/07/2017 arteriogram. 4. Patent anterior tibial, posterior tibial, peroneal and dorsalis pedis arteries demonstrating weak monophasic blood flow.
== END | disposition home or self-care (01) ==
LOC: US 11:57
PROVIDERS: ATTEND Nurse Practitioner
DX: I70.208 Unspecified atherosclerosis of native arteries of extremities, other extremity (principal); M79.651 Pain in right thigh; R53.1 Weakness
CPT/HCPCS: 93926; 93971

== ENCOUNTER → 2018-02-05 | Outpatient (CLI) | payer MEDICARE, BC | END | disposition home or self-care (01) | LOC: ECHO 09:01 | DX: I27.20 Pulmonary hypertension, unspecified (principal); I08.3 Combined rheumatic disorders of mitral, aortic and tricuspid valves; I65.23 Occlusion and stenosis of bilateral carotid arteries | CPT/HCPCS: 93306; 93880 ==

== ENCOUNTER → 2018-03-20 | Outpatient (CLI) | payer MEDICARE, BC | END | disposition home or self-care (01) | LOC: NM 08:59 | DX: I35.0 Nonrheumatic aortic (valve) stenosis (principal); I10 Essential (primary) hypertension; E78.5 Hyperlipidemia, unspecified; E03.9 Hypothyroidism, unspecified | CPT/HCPCS: 93017 ==

== ENCOUNTER → 2018-08-19 | Outpatient (CLI) | payer MEDICARE, BC ==
--- NOTE | 2018-08-19 09:53 | CARD ---
MR#: [id number] Date of Study: 08/19/2018 Ordering Physician: TERA LINDSAY, Referring Physician: TERA LINDSAY, Tech: Agueda Hernandez [facility] APPROVED REPORT EXAM: Two-dimensional and M-mode echocardiogram with Doppler and color Doppler. Other Information Quality : Good Rhythm : Bigeminy INDICATION Aortic Valve Disease 2D DIMENSIONS RVDd3.1 (2.9-3.5cm)Left Atrium(2D)3.8 (1.6-4.0cm) IVSd1.2 (0.7-1.1cm)Aortic Root(2D)2.9 (2.0-3.7cm) LVDd4.4 (3.9-5.9cm)LVOT Diameter2.0 (1.8-2.4cm) PWd1.2 (0.7-1.1cm)LVDs2.2 (2.5-4.0cm) FS (%) 30.0 %SV71.7 ml LVEF(%)60.0 (>50%) M-Mode DIMENSIONS Aortic Cusp Exc1.43 (1.5-2.0cm) Aortic Valve AoV Peak John.336.9cm/sAoV JJW788.5cm AO Peak GR.45.4mmHgLVOT Peak John.116.4cm/s LVOT VTI 28.99cmAO Mean GR.52mmHg EMORY (VMAX)1.48kg1DEJ (VTI)0.79cm2 AI P 1/2 Mjvj598jq Mitral Valve MV E Zpwlntxu448.9cm/sMV DECEL QDHE643fv MV EMD14prIRT (PHT)4.98cm2 TDI E/Medial E'17.0 Tricuspid Valve TR P. Rpsvioze231ol/sRAP ZCMLHXHE9khCs TR Peak Gr.86buOmPAPY10ijIs Pulmonary Vein S1 Mrmvskfm72.3cm/sD2 Urkhmedz37.2cm/s LEFT VENTRICLE The left ventricle is normal size. There is mild concentric left ventricular hypertrophy. The left ve ntricular systolic function is normal and the ejection fraction is within normal range. The Ejection Fraction is 55-60%. There is normal LV segmental wall motion. RIGHT VENTRICLE The right ventricle is normal size. The right ventricular systolic function is normal. ATRIA The left atrium is mildly dilated. The right atrium size is normal. The interatrial septum is intact with no evidence for an atrial septal defect or patent foramen ovale as noted on 2-D or Doppler imagi ng. AORTIC VALVE The aortic valve is severely calcified and displays decreased opening. Doppler and Color Flow reveale d moderate aortic regurgitation. Calculated aortic valve area is 0.79 cm2 with maximum pressure gradi ent of 97 mmHg and mean pressure gradient of 52 mmHg. Doppler and color-flow analysis revealed severe aortic stenosis. MITRAL VALVE The mitral valve is calcified but opens well. There is no evidence of mitral valve prolapse. There is no mitral valve stenosis. Doppler and Color-flow revealed trace to mild mitral regurgitation. TRICUSPID VALVE The tricuspid valve is normal in structure and function. Doppler and Color Flow revealed mild tricusp id regurgitation.There is moderate pulmonary hypertension.The PA pressure was estimated at 44 mmHg. T here is no tricuspid valve stenosis. PULMONIC VALVE The pulmonic valve is not well visualized. Doppler and Color Flow revealed moderate pulmonic valvular regurgitation. There is no pulmonic valvular stenosis. GREAT VESSELS The aortic root is normal in size. The ascending aorta is normal in size. The IVC was not visualized. PERICARDIAL EFFUSION There is no evidence of significant pericardial effusion. Critical Notification Critical Value: No <Conclusion> There is mild concentric left ventricular hypertrophy. The left ventricular systolic function is normal and the ejection fraction is within normal range. Th e Ejection Fraction is 55-60%. Calculated aortic valve area is 0.79 cm2 with maximum pressure gradient of 97 mmHg and mean pressure gradient of 52 mmHg. Doppler and color-flow analysis revealed severe aortic stenosis. Doppler and Color-flow revealed trace to mild mitral regurgitation. Doppler and Color Flow revealed mild tricuspid regurgitation.There is moderate pulmonary hypertension .The PA pressure was estimated at 44 mmHg. Doppler and Color Flow revealed moderate pulmonic valvular regurgitation. Signed by : Tera Lindsay, Electronically Approved : 08/19/2018 09:53:07
== END | disposition home or self-care (01) ==
LOC: ECHO 08:47
PROVIDERS: ATTEND Internal Medicine Cardiovascular Disease
DX: I08.2 Rheumatic disorders of both aortic and tricuspid valves (principal); I27.20 Pulmonary hypertension, unspecified
CPT/HCPCS: 93306

== ENCOUNTER 2018-12-22 08:43 | Emergency (ER) | payer MEDICARE, BC ==
[~2018-12-22] VITALS: Ht 160 cm; Wt 71.7 kg
[~2018-12-22 08:43] MED LIST changes: -HYDR-2758 PO; +HYDR-2761 PO
[2018-12-22 08:55] VITALS: BP 170/82
[2018-12-22] MEDS ORDERED: HYDR-3164 PO (09:03)
[2018-12-22] MEDS ORDERED: ACYC800T PO (09:04)
--- NOTE | 2018-12-22 09:05 | PHYS DOC ---
Adult General Chief Complaint Chief Complaint: SKIN RASH/ABSCESS [facility] HPI Patient is a 88 year old male who presents with right sided rash to chest that is painful. The patient states that he had a shingles vaccine in the past. He denies fever. Review of Systems Review of Systems Constitutional: Denies fever or chills [] Eyes: Denies change in visual acuity, redness, or eye pain [] HENT: Denies nasal congestion or sore throat [] Respiratory: Denies cough or shortness of breath [] Cardiovascular: No additional information not addressed in HPI [] GI: Denies abdominal pain, nausea, vomiting, bloody stools or diarrhea [] : Denies dysuria or hematuria [] Musculoskeletal: Denies back pain or joint pain [] Integument: See HPI Neurologic: Denies headache, focal weakness or sensory changes [] Endocrine: Denies polyuria or polydipsia [] All other systems were reviewed and found to be within normal limits, except as documented in this note. Allergies Allergies Allergies Coded Allergies Type Severity Reaction Last Updated Verified No Known Drug Allergies 07/25/17 No Physical Exam Physical Exam Constitutional: Well developed, well nourished, no acute distress, non-toxic appearance. [] HENT: Normocephalic, atraumatic, bilateral external ears normal, oropharynx moist, no oral exudates, nose normal. [] Eyes: PERRLA, EOMI, conjunctiva normal, no discharge. [] Neck: Normal range of motion, no tenderness, supple, no stridor. [] Cardiovascular:Heart rate regular rhythm, no murmur [] Lungs & Thorax: Bilateral breath sounds clear to auscultation [] Abdomen: Bowel sounds normal, soft, no tenderness, no masses, no pulsatile masses. [] Skin: painful, vesicular rash to right chest Back: No tenderness, no CVA tenderness. [] Extremities: No tenderness, no cyanosis, no clubbing, ROM intact, no edema. [] Neurologic: Alert and oriented X 3, normal motor function, normal sensory function, no focal deficits noted. [] Psychologic: Affect normal, judgement normal, mood normal. [] EKG EKG [] Radiology/Procedures Radiology/Procedures [] Course & Med Decision Making Course & Med Decision Making Pertinent Labs and Imaging studies reviewed. (See chart for details) [] Dragon Disclaimer Dragon Disclaimer This electronic medical record was generated, in whole or in part, using a voice recognition dictation system. Departure Departure Impression: Primary Impression: Shingles Disposition: 01 HOME, SELF-CARE Condition: STABLE Referrals: LEIGHANN GALLEGOS MD (PCP) Patient Instructions: Shingles Additional Instructions: Take the medications as directed. Do not drive or operate heavy machinery while taking pain medication. Keep the wounds clean and dry. Watch for signs of secondary infection. Follow-up with your primary care provider if not improving or return to the emergency department if worsening. Scripts Acyclovir (ACYCLOVIR) 800 Mg Tablet 1 TAB PO 5XDAY for shingles, #50 TAB Prov: HARRY STRONG APRN 12/22/18 Hydrocodone/Apap 5-325 (NORCO 5-325 TABLET) 1 Each Tablet 1 TAB PO PRN Q6HRS PRN for PAIN, #20 TAB 0 Refills Prov: HARRY STRONG APRN 12/22/18 HARRY STRONG APRN Dec 22, 2018 09:05
== END 2018-12-22 09:08 | disposition home or self-care (01) ==
LOC: ER 08:43
DX: B02.9 Zoster without complications (principal)
CPT/HCPCS: 99283

== ENCOUNTER 2019-03-25 07:01 | Outpatient (CLI) | payer MEDICARE, BC ==
[2019-03-25] VITALS (13 sets, daily range): BP systolic 111–162; BP diastolic 37–75
[~2019-03-25] VITALS: Ht 160 cm; Wt 69.9 kg
[~2019-03-25 07:01] MED LIST changes: +ACYC800T PO; +HYDR-3164 PO
[2019-03-25 07:34] LABS: HEMATOCRIT 41.5 % (39.0-53.0); RED BLOOD COUNT 5.11 x10^6/uL (4.30-5.70); RED CELL DISTRIBUTION WIDTH 14.8 % (11.5-14.5); WHITE BLOOD COUNT 7.1 x10^3/uL (4.0-11.0)
[2019-03-25 07:40] LABS: CALCIUM 9.7 mg/dL (8.5-10.1); CREATININE 1.1 mg/dL (0.7-1.3)
[2019-03-25] MEDS ORDERED: IODIXANOL 320 MG/ML 100 ML VIAL. ONE ×2 (07:43)
[2019-03-25] MEDS ORDERED: LIDOCAINE 1% PF 2 ML VIAL. ONE (07:43)
[2019-03-25] MEDS ORDERED: HEPARIN for ARTERIAL LINE 1,500 ML ONE (07:43)
[2019-03-25 07:44] LABS: PROTHROMBIN TIME PATIENT 13.5 SEC (11.7-14.0)
[2019-03-25] MEDS ORDERED: fentaNYL PF VIAL 100 MCG/2 ML VIAL ONE (08:38)
[2019-03-25] MEDS ORDERED: VERAPAMIL 5 MG/2 ML VIAL. ONE (08:39)
[2019-03-25] MEDS ORDERED: MIDAZOLAM HCL/PF 2 MG/2 ML VIAL. ONE (08:39)
[2019-03-25] MEDS ORDERED: HEPARIN for IV BOLUS 10,000 UNIT/10 ML VIAL. ONE (08:39)
[2019-03-25] MEDS ORDERED: NITROGLYCERIN 200 MCG/2 ML SYRINGE FOR CATH/VASC LAB. ONE (08:39)
--- NOTE | 2019-03-25 08:46 | CARD ---
MR#: [id number] Date of Study: 03/25/2019 Ordering Physician: TERA LINDSAY, Referring Physician: TERA LINDSAY, Tech: Chrystal Orozco [facility] APPROVED REPORT EXAM: Two-dimensional and M-mode echocardiogram with Doppler and color Doppler. Other Information Quality : AverageHR: 55bpm Rhythm : Other INDICATION Aortic Valve Disease PAD 2D DIMENSIONS RVDd3.0 (2.9-3.5cm)Left Atrium(2D)4.2 (1.6-4.0cm) IVSd1.5 (0.7-1.1cm)Aortic Root(2D)3.2 (2.0-3.7cm) LVDd4.4 (3.9-5.9cm)LVOT Diameter2.2 (1.8-2.4cm) PWd1.0 (0.7-1.1cm)LVDs2.9 (2.5-4.0cm) FS (%) 35.1 %SV57.5 ml LVEF(%)64.6 (>50%) Aortic Valve AoV Peak John.410.2cm/sAoV VTI96.3cm AO Peak GR.67.3mmHgLVOT VTI 22.81cm AO Mean GR.33mmHgAVA (VTI)0.84cm2 AI P 1/2 Wrdl804an Mitral Valve MV E Rhznqbgf799.9cm/sMV E Peak Gr.13mmHg MV DECEL GSBW233tyFV A Grqxzait36.4cm/s MV E Mean Gr.3mmHgE/A Ratio1.8 MV A Ktfzrpvg642cp TDI Lateral E' P. V8.17cm/sMedial E' P. V6.95cm/s E/Lateral E'18.3E/Medial E'21.6 Tricuspid Valve TR P. Ddiddmea026zd/sRAP BRGIEJCO1jxDd TR Peak Gr.42pnKoYXAP83rrIk Pulmonary Vein S1 Ebaeaegx69.7cm/sS2 Rhhgrgow29.24cm/s D2 Guxdlzsv64.2cm/sPVa katavhbn987aegk LEFT VENTRICLE The left ventricle is normal size. Proximal septal thickening is noted. The left ventricular systolic function is normal and the ejection fraction is within normal range. The Ejection Fraction is 60-65% . There is normal LV segmental wall motion. Transmitral Doppler flow pattern is Grade II-pseudonormal filling dynamics. RIGHT VENTRICLE The right ventricle is normal size. There is normal right ventricular wall thickness. The right ventr icular systolic function is normal. ATRIA The left atrium is mildly dilated. The right atrium size is normal. The interatrial septum is intact with no evidence for an atrial septal defect or patent foramen ovale as noted on 2-D or Doppler imagi ng. AORTIC VALVE The aortic valve is severely calcified. The aortic valve is trileaflet. Doppler and Color Flow reveal ed moderate aortic regurgitation. There is severe valvular aortic stenosis. Calculated aortic valve a samy is 0.8 cm2 with maximum pressure gradient of 67 mmHg and mean pressure gradient of 35 mmHg. Vmax at 4.1 m/s MITRAL VALVE The mitral valve is calcified and displays decreased opening. There is no evidence of mitral valve pr olapse. There is no mitral valve stenosis. Doppler and Color-flow revealed mild mitral regurgitation. TRICUSPID VALVE The tricuspid valve is normal in structure and function. Doppler and Color Flow revealed mild tricusp id regurgitation. There is moderate pulmonary hypertension. The PA pressure was estimated at 54 mmHg. There is no tricuspid valve prolapse or vegetation. There is no tricuspid valve stenosis. PULMONIC VALVE The pulmonic valve is not well visualized. GREAT VESSELS The aortic root is normal in size. The ascending aorta is normal in size. The IVC is normal in size a nd collapses >50% with inspiration. PERICARDIAL EFFUSION There is no evidence of significant pericardial effusion. Critical Notification Critical Value: No <Conclusion> The left ventricular systolic function is normal and the ejection fraction is within normal range. Th e Ejection Fraction is 60-65%. There is normal LV segmental wall motion. The aortic valve is severely calcified. The aortic valve is trileaflet. There is severe valvular aortic stenosis. Calculated aortic valve area is 0.8 cm2 with maximum press ure gradient of 67 mmHg and mean pressure gradient of 35 mmHg. Vmax at 4.1 m/s Doppler and Color Flow revealed mild tricuspid regurgitation. There is moderate pulmonary hypertensio n. The PA pressure was estimated at 54 mmHg. Signed by : Tera Lindsay, Electronically Approved : 03/25/2019 08:45:47
[2019-03-25] MEDS ORDERED: HEPARIN for IV BOLUS 10,000 UNIT/10 ML VIAL. IART ONE (09:15)
[2019-03-25] MEDS ORDERED: NITROGLYCERIN 200 MCG/2 ML SYRINGE FOR CATH/VASC LAB. IART ONE (09:15)
[2019-03-25] MEDS ORDERED: VERAPAMIL 5 MG/2 ML VIAL. IART ONE (09:15)
[2019-03-25] MEDS ORDERED: MIDAZOLAM HCL/PF 2 MG/2 ML VIAL. IV ONE (09:15)
[2019-03-25] MEDS ORDERED: fentaNYL PF VIAL 100 MCG/2 ML VIAL IV ONE (09:15)
[2019-03-25] MEDS ORDERED: LIDOCAINE 1% PF 2 ML VIAL. INJ ONE (09:15)
[2019-03-25] MEDS ORDERED: IODIXANOL 320 MG/ML 100 ML VIAL. IART ONE (09:15)
[2019-03-25] MEDS ORDERED: CONTRAST GIVEN. MC PRN (09:30)
--- NOTE | 2019-03-25 09:57 | CARD ---
MR#: [id number] Date of Study: 03/25/2019 Ordering Physician: TERA BLANDON, Referring Physician: TERA BLANDON, Tech: RT Luke (R) APPROVED REPORT Technologist: Kade Day RT (R) Nurse: Mago Crum R.N. Procedure(s) performed: Fluoro time: 3.1 minutes Dose: 50 Gycm2 Contrast: 47 ml Moderate sedation: 26 Minutes HISTORY The patient is a 88 year-old male with a history of : hypertension, dyslipidemia, PAD. INDICATION The indication(s) include : unstable angina , dyspnea, valvular heart disease. [facility] Clinical Frailty Scale [facility] Clinical Frailty Scale: Vulnerable Heart Failure Heart Failure: Yes If Yes, Newly Diagnosed: No If Yes, HF Type: Diastolic If Yes, NYHA Class: Class II PROCEDURE NARRATIVE INDICATION: 88 Y.O male with severe aortic stenosis with progressive dyspnea. INFORMED CONSENT: After explaining the risks and benefits of the procedure and alternatives, informed consent was obtained. The patient was brought electively to the cardiac catheterization lab. A timeout was performed confi rming the patient's name, date of , procedure, and site of procedure. All necessary personnel w ere wearing the appropriate protective equipment and radiation monitor devices. (See nursing notes for medications administered). ACCESS: The right wrist was sterilely prepped and draped in the usual fashion. The right wrist was infiltrat ed with 1 mL of 2% lidocaine for subcutaneous anesthesia. A 6 [place] Terumo glide sheath was inserte d into the right radial artery without difficulty. CORONARY ANGIOGRAPHY: Right and left coronary angiography was performed using a 6Fr TIG 4.0 catheter. Left ventricular en d diastolic pressure was obtained with a pigtail catheter and pullback was performed after left ventr iculography. All catheter exchanges and advancements were performed over a guidewire. CLOSURE: At case completion the right radial sheath was removed and a Terumo radial band was applied with 13 m l of air. COMPLICATIONS: The patient tolerated the procedure well and there were no immediate complications. FINDINGS: HEMODYNAMICS: AO: 128/79 LEFT VENTRICULOGRAM: Deferred due to known normal EF by echo on 03/25/2019 CORONARY ANGIOGRAPHY: LM is a large caliber vessel with normal angiographic appearance. LAD is large caliber heavily calcified vessel with a mid 90% stenosis. The distal vessel has a 40-50% stenosis. LCx is a moderate caliber non-dominant vessel with mild irregularities of up to 20% and a focal proxi mal 80% stenosis. Distally, the vessel has severe diffuse disease. OM1 is a large caliber vessel with mild luminal irregularities. OM2 is a small caliber vessel with severe diffuse irregularities of up to 90% RCA is a large caliber dominant vessel with mild diffuse irregularities of up to 30%. The distal vess el into the PDA/PL bifurcation has significant negative remodeling and has severe diffuse disease. RPDA is a small caliber vessel with a proximal occlusion. There are left to right collaterals noted. Conclusion 1. Severe three vessel coronary artery disease with critical stenosis of the mid LAD 2. Severe aortic stenosis. Recommendations 1. Patient will likely need atherectomy of the LAD lesion and PCI due to significant heavy calcific b urden. 2. Will refer to [facility] for evaluation of concurrent TAVR with LAD PCI and evaluation of access vessels . 3. Discussed with family and patient. Signed by : Tera Blandon, Electronically Approved : 03/25/2019 09:57:29
--- NOTE | 2019-03-25 12:12 | NUR ---
Discharge Note: JOSE HOPKINS Discharge instructions and discharge home medications reviewed with Patient and a copy given. All questions have been answered and understanding verbalized. The following instructions and handouts were given: radial site care and moderate sedation Discontinued lines and drains: Peripheral IV intact. Patient discharged to Home or Self Care withFamily Membervia Wheelchair
== END 2019-03-25 12:14 ==
LOC: CCL 07:01
PROVIDERS: ATTEND Internal Medicine Cardiovascular Disease
DX: I25.10 Atherosclerotic heart disease of native coronary artery without angina pectoris (principal); I35.8 Other nonrheumatic aortic valve disorders; I10 Essential (primary) hypertension; E78.00 Pure hypercholesterolemia, unspecified; K21.9 Gastro-esophageal reflux disease without esophagitis; E03.9 Hypothyroidism, unspecified; Z85.528 Personal history of other malignant neoplasm of kidney; Z90.5 Acquired absence of kidney; Z95.4 Presence of other heart-valve replacement; Z79.899 Other long term (current) drug therapy; Z98.890 Other specified postprocedural states
CPT/HCPCS: 36415; 80048; 85027; 85610; 85730; 93306; 93454; 99152; 99153; C1769; C1892; J1644; J2250; J3010; J3490; Q9967

== ENCOUNTER → 2019-04-23 | Outpatient (CLI) | payer MEDICARE, BC ==
[2019-03-25 11:45] VITALS: BP 126/54
--- NOTE | 2019-04-23 13:29 | RAD ---
FOOT LEFT 2V 04/23/2019 12:00 AM INDICATION: Peripheral artery disease. There are digit swelling and redness. COMPARISON: None available. TECHNIQUE: 2 views the left foot are provided. FINDINGS: There is no acute fracture or dislocation. Bone mineralization is within normal limits. There is joint space narrowing involving the distal interphalangeal joints of the second, third and fourth digits with articular surface irregularity. Regional soft tissues are within normal limits. There is no soft tissue gas or osseous erosion. Vascular calcifications are identified. IMPRESSION: No acute fracture or dislocation. 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 Electronically signed by: Lupe Jain MD (04/23/2019 1:26 PM) [id number]
--- NOTE | 2019-04-23 17:48 | RAD ---
MR#: [id number] Date of Study: 04/23/2019 Ordering Physician: TERA LINDSAY, Referring Physician: TERA LINDSAY, Tech: Roldan Daniels MBA, RDMS, RVT, RDCS, RTR APPROVED REPORT Patient Location: OUT-PATIENT Indications PAD VELOCITY AND DOPPLER WAVEFORM ANALYSIS RIGHT cm/secWaveformSeverity LEFT cm/secWaveform Severity dCFA 75.0MonophasicdCFA 578.0Monophasic Prof Fem Art. 77.0MonophasicProf Fem Art. 120.0Monophasic Fem Art Prox. OccludedFem Art Prox. Occluded Fem Art Mid. OccludedFem Art Mid. Occluded Fem Art Dist. OccludedFem Art Dist. Occluded Pop Art(Fossa) 62.0MonophasicPop Art(AK) 16.0Monophasic EQUIPMENT MAINTENANCE TECH Prox. 22.0MonophasicPTA Prox. 27.0Monophasic EQUIPMENT MAINTENANCE TECH Dist. 23.0MonophasicPTA Dist. 26.0Monophasic ADEEL Prox. 28.0MonophasicATA Prox. 24.0Monophasic DPA 37MonophasicDPA 10Monophasic Image Findings Grayscale images of the bilateral lower ext arterial vessels are quite limited. Nonetheless, there is diffuse plaque noted. On the right spectral waveforms are monophasic. Peak systolic velocities are within normal limits in the common femoral and profunda femoral artery. This is likely suggestive of more inflow disease and likely loss of arterial elasticity due to significant plaque burden in the adventitia. The right supe rficial femoral artery is occluded. There is reconstitution at the level of the popliteal segment. Po pliteal velocities are monophasic and within normal limits. Below the knee the peroneal artery is not well visualized and there are severely diminished velocities in the posterior tibial and anterior ti bial vessels. This is likely get a reflection of the more proximal disease. On the left there is significant velocity acceleration involving the left common femoral artery sugge stive of greater than 75% stenosis. The left SFA is occluded. Severely diminished flow in a monophasi c wave pattern is noted in the popliteal and below-knee vessels. The peroneal artery again is not wel l visualized similar to the right side. Critical Notification Critical Value: No <Conclusion> 1. Severe flow-limiting stenosis involving the bilateral lower ext arterial vessels more prominent on the left than the right. Signed by : Tera Lindsay, Electronically Approved : 04/23/2019 17:48:23
--- NOTE | 2019-04-23 17:49 | RAD ---
MR#: [id number] Date of Study: 04/23/2019 Ordering Physician: TERA LINDSAY, Referring Physician: TERA LINDSAY, Tech: Roldan Daniels MBA, RDMS, RVT, RDCS, RTR APPROVED REPORT Patient Location: OUT-PATIENT Indications PAD Findings Right ankle-brachial index approximately 0.61. Left ankle brachial index could not be obtained but no significant difference in left arm pressures w ere obtained. The left ankle arteries were noncompressible. Critical Notification Critical Value: No <Conclusion> 1. Abnormal bilateral ankle brachial indices as noted above. Signed by : Tera Lindsay, Electronically Approved : 04/23/2019 17:49:17
== END | disposition home or self-care (01) ==
LOC: US 11:49
PROVIDERS: ATTEND Internal Medicine Cardiovascular Disease
DX: M19.072 Primary osteoarthritis, left ankle and foot (principal); I70.203 Unspecified atherosclerosis of native arteries of extremities, bilateral legs
CPT/HCPCS: 73620; 93922; 93925

== ENCOUNTER 2019-05-29 14:36 | Inpatient (IN) | payer MEDICARE, BC ==
[~2019-05-29] VITALS: Ht 160 cm; Wt 68.9 kg
[~2019-05-29 14:36] MED LIST changes: +ALLO300T PO; -AMLO1CAP12 PO; +AMLO1CAP13 PO; +CLOP75TA PO; +DIPH25CA58 PO; +RANI150C PO
[2019-05-29] MEDS ORDERED: LACTULOSE 20 GM/30 ML SOLUTION. PO PRN (15:30)
[2019-05-29] MEDS ORDERED: ONDANSETRON PF 4 MG/2 ML VIAL. IV PRN (15:30)
[2019-05-29] MEDS ORDERED: ACETAMINOPHEN 325 MG TABLET. PO PRN (15:30)
[2019-05-29] MEDS ORDERED: BISACODYL 10 MG SUPP.RECT. PR PRN (15:30)
[2019-05-29] MEDS ORDERED: HYDROcodone/APAP 5/325MG 1 TAB TABLET PO PRN (15:30)
--- NOTE | 2019-05-29 15:38 | PDOC1 ---
History and Physical Date of Admission Date of Admission DATE: 05/29/19 TIME: 15:34 Identification/Chief Complaint Chief Complaint Foot pain Source Source: Chart review, Patient History of Present Illness History of Present Illness Mr Hopkins is an 88yo M w/ PMHx Gout, Severe/critical aortic stenosis, chronic paroxsymal atrial fibrillation, HTN, HLD, PAD with crippling claudication history with recent left common femoral and profunda femoral endarterectomy on 05/21/2019 who presents directly from the wound clinic for concern for ulceration of the anterior aspect of the DIP of his left third toe with a visible gout c rystal and photo of visible bone and severe intractable pain 09/30 according to the patient. At the same time he has severe pain, redness, swelling and hyperesthesia of the 2nd toe of his right foot, states he was given doxycycline to treat a gout flare up there. Past Medical History Cardiovascular: HTN, Hyperlipidemia, Aortic stenosis Pulmonary: No pertinent hx GI: No pertinent hx Heme/Onc: No pertinent hx Hepatobiliary: No pertinent hx Psych: No pertinent hx Rheumatologic: Gout Infectious disease: No pertinent hx ENT: No pertinent hx Renal/: No pertinent hx Endocrine: No pertinent hx Dermatology: No pertinent hx Past Surgical History Past Surgical History: Other (Left femoral endarterectomy) Family History Family History Retired diversified crops ii farmworker Family History: Coronary Artery Disease, High Cholestrol, Hypertension Social History Smoke: Quit ALCOHOL: none Drugs: None Current Medications Current Medications Current Medications Ondansetron HCl (Zofran) 4 mg PRN Q6HRS PRN IV NAUSEA/VOMITING; Start 05/29/19 at 15:30; Status UNV Morphine Sulfate (Morphine Sulfate) 2 mg PRN Q1HR PRN IV PAIN; Start 05/29/19 at 15:30; Status UNV Acetaminophen/ Hydrocodone Bitart (Lortab 5/325) 1 tab PRN Q4HRS PRN PO MILD PAIN 1-3; Start 05/29/19 at 15:30; Status UNV Acetaminophen (Tylenol) 650 mg PRN Q6HRS PRN PO Headaches, Temp > 101.5F; Start 05/29/19 at 15:30; Status UNV Senna/Docusate Sodium (Senna Plus) 1 tab BID PO ; Start 05/29/19 at 21:00; Status UNV Lactulose (Lactulose) 20 gm PRN Q12HR PRN PO CONSTIPATION; Start 05/29/19 at 15:30; Status UNV Bisacodyl (Dulcolax Supp) 10 mg PRN DAILY PRN MD CONSTIPATION; Start 05/29/19 at 15:30; Status UNV Allopurinol (Zyloprim) 300 mg DAILY PO ; Start 05/30/19 at 09:00; Status UNV Levothyroxine Sodium (Synthroid) 125 mcg DAILY PO ; Start 05/30/19 at 09:00; Status UNV Metoprolol Succinate (Toprol Xl) 25 mg DAILY PO ; Start 05/30/19 at 09:00; Status UNV Simvastatin (Zocor) 20 mg QHS PO ; Start 05/29/19 at 21:00; Status UNV Non-Formulary Medication (Ranitidine Hcl ) 150 mg DAILY PO ; Start 05/30/19 at 09:00; Status UNV Active Scripts Active Jacobson 5-325 Tablet (Acetaminophen/Hydrocodone Bitart) 1 Each Tablet 1 Tab PO PRN Q6HRS PRN Reported Benadryl (Diphenhydramine Hcl) 25 Mg Capsule 25 Mg PO HS Allopurinol 300 Mg Tablet 300 Mg PO DAILY Ranitidine Hcl 150 Mg Capsule 150 Mg PO DAILY Clopidogrel (Clopidogrel Bisulfate) 75 Mg Tablet 75 Mg PO DAILY Xarelto (Rivaroxaban) 20 Mg Tablet 20 Mg PO DAILY Simvastatin 20 Mg Tablet 1 Tab PO QHS Metoprolol Succinate ( Xl ) (Metoprolol Succinate) 25 Mg Tab.er.24h 1 Tab PO DAILY Levothyroxine Sodium 125 Mcg Tablet 1 Tab PO DAILY Amlodipine-Benazepril 10-20 Mg (Amlodipine Besylate/Benazepril) 1 Each Capsule 1 Cap PO DAILY Allergies Allergies: Coded Allergies: No Known Drug Allergies (Unverified , 05/20/19) ROS General: No: Chills, Night Sweats, Fatigue, Malaise, Appetite, Other PSYCHOLOGICAL ROS: No: Anxiety, Behavioral Disorder, Concentration difficultie, Decreased libido, Depression, Disorientation, Hallucinations, Hostility, Irritablity, Memory difficulties, Mood Swings, Obsessive thoughts, Physical abuse, Sexual abuse, Sleep disturbances, Suicidal ideation, Other Eyes: No Blurry vision, No Decreased vision, No Double vision, No Dry eyes, No Excessive tearing, No Eye Pain, No Itchy Eyes, No Loss of vision, No Photophobia, No Scotomata, No Uses contacts, No Uses glasses, No Other HEENT: No: Heacaches, Visual Changes, Hearing change, Nasal congestion, Nasal discharge, Oral lesions, Sinus pain, Sore Throat, Epistaxis, Sneezing, Snoring, Tinnitus, Vertigo, Vocal changes, Other ALLERGY AND IMMUNOLOGY: No: Hives, Insect Bite Sensitivity, Itchy/Watery Eyes, Nasal Congestion, Post Nasal Drip, Seasonal Allergies, Other Hematological and Lymphatic: No: Bleeding Problems, Blood Clots, Blood Transfusions, Brusing, Night Sweats, Pallor, Swollen Lymph Nodes, Other ENDOCRINE: No: Breast Changes, Galactorrhea, Hair Pattern Changes, Hot Flashes, Malaise/lethargy, Mood Swings, Palpitations, Polydipsia/polyuria, Skin Changes, Temperature Intolerance, Unexpected Weight Changes, Other Breast: No New/Changing Breast Lumps, No Nipple changes, No Nipple discharge, No Other Respiratory: YES: Shortness of breath; No: Cough, Hemoptysis, Orthopnea, Pleuritic Pain, SOB with excertion, Sputum Changes, Stridor, Tachypnea, Wheezing, Other Cardiovascular: No Chest Pain, No Palpitations, No Orthopnea, No Paroxysmal Noc. Dyspnea, No Edema, No Lt Headedness, No Other Gastrointestinal: No Nausea, No Vomiting, No Abdominal Pain, No Diarrhea, No Constipation, No Melena, No Hematochezia, No Other Genitourinary: No Dysuria, No Frequency, No Incontinence, No Hematuria, No Retention, No Discharge, No Urgency, No Pain, No Flank Pain, No Other, No , No , No , No , No , No , No Musculoskeletal: Yes Gait Disturbance, Yes Joint Pain, Yes Joint Stiffness, Yes Joint Swelling; No Muscle Pain, No Muscular Weakness, No Pain In:, No Swelling In:, No Other Neurological: Yes Gait Disturbance; No Behavorial Changes, No Bowel/Bladder ControlChng, No Confusion, No Dizziness, No Headaches, No Impaired Coord/balance, No Memory Loss, No Numbness/Tingling, No Seizures, No Speech Problems, No Tremors, No Visual Changes, No Weakness, No Other Skin: Yes Skin Lesion Changes; No Dry Skin, No Eczema, No Hair Changes, No Lumps, No Mole Changes, No Mottling, No Nail Changes, No Pruritus, No Rash, No Other, No Acne Physical Exam General: Alert, Oriented X3, Cooperative, No acute distress HEENT: Atraumatic, PERRLA, EOMI, Mucous membr. moist/pink Lungs: Clear to auscultation, Normal air movement Heart: S1S2, RRR, no gallops, murmurs (4/6 JOHN) Abdomen: Normal bowel sounds, Soft, No tenderness, No hepatosplenomegaly, No masses Extremities: No clubbing, No cyanosis, No edema, Normal pulses, Other (Right 2nd toe swollen, red, hyperesthetic. Left 3rd toe with open ulcer) Skin: No rashes, No breakdown, No significant lesion Neuro: Normal gait, Normal speech, Strength at 5/5 X4 ext, Normal tone, Sensation intact, Cranial nerves 3-12 NL, Reflexes 2+ Psych/Mental Status: Mental status NL, Mood NL VTE Prophylaxis Ordered VTE Prophylaxis Devices: No VTE Pharmacological Prophylaxi: Yes Assessment/Plan Assessment/Plan A/P: Left 3rd toe ulcer - bone visible, equivalent for osteomyelitis. without a h istory of tophaceous gout I fear this is vascular. Consult Vascular surgery. Patient is already assuming he will lose his toe. Pain control PVD - previously known with successful intervention on his left leg Severe aortic stenosis - critical on last echo - scheduled for TAVR already rescheduled at [facility] 2/2 his vascular disease. Cardiology consulted. BP control Paroxysmal afib - on Chronic anticoagulation, will hold for surgery Hyperlipidemia - cont statin Gouty Arthritis - with flare in his right foot. Pain control GERD - cont treatment FEN - Cardiac diet, NPO after midnight PPX - Xarelto, hold for possible surgery FULL CODE Inpatient for vascular wound KELSEY PARADA MD May 29, 2019 15:38
[2019-05-29] MEDS: LEVOTHYROXINE 125 MCG TABLET PO SCH (16:00)
[2019-05-29] MEDS: FAMOTIDINE 20 MG TABLET. PO SCH (16:00)
[2019-05-29] MEDS: ALLOPURINOL 300 MG TABLET. PO SCH (16:00)
[2019-05-29] MEDS: METOPROLOL SUCC 24HR ER 25 MG TAB.ER.24H. PO SCH (16:00)
--- NOTE | 2019-05-29 16:18 | NUR ---
Wound Care Wound care assessment of [facility] clinic pt was admitted for exposed bone in left 3rd toe. Wound dressed with Iodoflex and gauze prior to leaving [facility]. pt given copy of photo for assessment by staff if needed as well as additional dressings and instruction sheet. No other wounds noted on full skin inspection.
[2019-05-29 16:27] VITALS: BP 163/67
[2019-05-29] MEDS: HYDROcodone/APAP 5/325MG 1 TAB TABLET PO PRN (17:17)
[2019-05-29] MEDS: HEPARIN for SUB-Q USE 5,000 UNIT/ML VIAL. SQ SCH ×2 (17:21→21:56)
--- NOTE | 2019-05-29 18:14 | PDOC2 ---
CARDIOLOGY CONSULT NOTE CHEIF COMPLAINT: Foot pain HPI: 88-year-old man with multiple cardiac comorbidities as noted below presenting to the hospital with worsening foot pain. He initially was noted to have a left second toe ulcer which was debrided recently during the left common femoral endarterectomy that he had at the end of April. The pain in this debrided toe has been getting worse and the patient has been admitted for further evaluation from the wound care center. He has known severe aortic stenosis and is planned for a transcatheter aortic valve replacement in the near future when his vascular issues are resolved. Currently denies any specific cardiac problems. His main complaint is right second toe and left toe ulcer pain. PMHX: 1. Prior history of atrial fibrillation on anticoagulation 2. Hypertension 3. Dyslipidemia 4. Coronary artery disease status post PCI to the LAD 5. Severe aortic stenosis with upcoming plans for transcatheter aortic valve replacement. SOCHX: No alcohol, tobacco or illicit drug use. He has very supportive family. FAMHX: Noncontributory in this 88-year-old ALLERGIES: Allergies Coded Allergies Type Severity Reaction Last Updated Verified No Known Drug Allergies 05/20/19 No ROS: Negative for 10 out of 14 systems reviewed unless otherwise mentioned above in history of present illness PHYSICAL EXAM: Vital Signs/I&O: Vital Signs Date Time Temp Pulse Resp B/P (MAP) Pulse Ox O2 Delivery O2 Flow Rate FiO2 05/29/19 17:22 97 Room Air 05/29/19 16:27 97.9 64 16 163/67 (99) 97.9 Physical Exam: He appears to be in moderate distress due to pain but otherwise is alert and oriented �3 Cardiac exam is notable for a regular rhythm with a 5/6 aortic stenosis murmur Lungs are notable for clear breath sounds Soft abdomen Diminished pedal pulses. There is a Doppler signal at the level of the left DP. Femoral pulses are palpable 1+ bilaterally Neurologically no focal deficits. Likely bilateral gout and inflammation. Changes of the right second toe and left third toe. DIAGNOSTIC TESTING: No new laboratory testing available. ASSESSMENT: 1. Severe peripheral vascular disease status post bilateral common femoral endarterectomies most recently on the left side at the end of April 2. Severe aortic stenosis awaiting transcatheter aortic valve replacement 3. Left foot ulcer and right toe gout inflammation PLAN: 1. Stable from a cardiac standpoint. Await vascular surgery recommendations. 2. We will follow along peripherally. Please call with any further questions. TERA LINDSAY MD May 29, 2019 18:14
[2019-05-29 19:55] VITALS: BP 143/57
--- NOTE | 2019-05-29 20:21 | PDOC ---
Provider Note Provider Note (please see full dictation) 88 yo male with severe peripheral artery disease and gout presents with open ulcer on the dorsal left 3rd toe that extends to the bone. He has clinical osteomyelitis. He had a left femoral endarterectomy by Dr. Hook on 05/21/19. He would likely benefit from left 3rd toe amputation. I discussed the risks/benefits with him in detail. It is unclear if he will have adequate arterial flow to facilitate healing. He acknowledged and elected to proceed. Will try to add to the schedule for tomorrow. KELLI VARGAS MD May 29, 2019 20:21
[2019-05-29] MEDS: SENNOSIDES/DOCUSATE 8.6/50MG TABLET. PO SCH (21:44)
[2019-05-29] MEDS: SIMVASTATIN 20 MG TABLET PO SCH (21:44)
[2019-05-29] MEDS: CLINDAMYCIN 600MG PREMIX 50 ML IV SCH (21:44)
[2019-05-29 23:05] VITALS: BP 114/55
--- NOTE | 2019-05-30 03:05 | CONS ---
DATE OF CONSULTATION: 05/29/2019 CHIEF COMPLAINT: Left third toe ulcer extending to bone. HISTORY OF PRESENT ILLNESS: The patient is an 88-year-old male with severe aortic stenosis, atrial fibrillation, hypertension, hyperlipidemia, history of gout, and peripheral arterial disease, who presents with a persistent ulcer on the left third toe. He has a long history of gout, and his left third toe was debrided several weeks ago. Due to poor healing, Dr. Hook performed a left femoral endarterectomy on 05/21. 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 His most recent other arterial imaging was a CT angiogram of the chest, abdomen and pelvis done through . This demonstrated near occlusive calcified plaquing in the left common femoral artery for which he had the femoral endarterectomy. He was seen in the [facility] earlier today where the ulcer extended down to the proximal phalanx. He subsequently was admitted for definitive care. He has been on doxycycline for his cellulitis and suspected gout in toes on both feet. PAST MEDICAL HISTORY: 1. Severe coronary artery disease for which he had rotational atherectomy at in March. 2. Hypertension. 3. Hyperlipidemia. 4. Severe aortic stenosis. 5. Peripheral arterial disease. 6. Gout. PAST SURGICAL HISTORY: 1. Right femoral endarterectomy in 2016. 2. Left femoral endarterectomy on 05/21/2019. 3. Coronary interventions. CURRENT MEDICATIONS: Simvastatin, subcutaneous heparin, Pepcid, metoprolol, Synthroid, allopurinol, bisacodyl, lactulose. Please see medication administration record for dosing details. He was previously on Plavix, Xarelto for anticoagulation, and antiplatelet medications prior to admission. ALLERGIES: No known drug allergies. SOCIAL HISTORY: He has a remote history of smoking, but none for some time. He denies any alcohol use. FAMILY HISTORY: Significant for coronary artery disease, hypercholesterolemia, and hypertension. REVIEW OF SYSTEMS: No recent fevers, chills, chest pain or shortness of breath. No unilateral weakness, numbness, visual loss, speech changes, other TIA or stroke symptoms. No nausea, vomiting, diarrhea, constipation, hematochezia, melena or other GI symptoms. He has intermittent redness and swelling of his toes consistent with gout. Please see history and physical for other details. Other 14-point review of systems was unremarkable. PHYSICAL EXAMINATION: GENERAL: This is a well-developed male, in no acute distress. VITAL SIGNS: Temperature 98.0, pulse 57, blood pressure 143/57, respirations 16. NECK: Supple, no lymphadenopathy. CARDIOVASCULAR: Regular rhythm. ABDOMEN: Soft, nontender, nondistended, no palpable masses. EXTREMITIES: He has palpable radial and femoral pulses bilaterally. He has a well healed surgical scar in his right groin. He has a fresh or surgical scar in his left groin. Steri-Strips are still intact. He has no significant lower leg edema. He has monophasic Doppler signals in dorsalis pedis and posterior tibial arteries bilaterally. He has some erythema and swelling in his right second toe as well as his left second toe. He says this is consistent with gout. Minimal discomfort at this time. He has an open wound on the dorsal aspect of the left third toe that extends down to the bone. No other areas of skin breakdown are noted. LABORATORY DATA: Significant for white blood cell 8.7, hemoglobin 12.2, platelet count of 188. These labs were done following his previous surgery. No recent labs today. Creatinine at that time was 1.1. Repeat labs are pending for the morning. IMPRESSION: 1. Left third toe osteomyelitis. 2. Peripheral arterial disease. 3. Status post bilateral femoral endarterectomy (left 1-1/2 weeks ago). 4. Severe aortic stenosis. 5. Atrial fibrillation. 6. Hypertension. 7. Hypercholesterolemia. RECOMMENDATIONS: He would likely benefit from left third toe amputation. I discussed risks and potential benefits with him in detail. Risks include but are not limited to bleeding, infection, poor healing, cardiac/pulmonary complications, and . He acknowledged and request to proceed. It is unclear whether he will have adequate flow to facilitate healing, but he has minimal additional options for revascularization. We will attempt to add him on the surgical schedule for tomorrow. KELLI VARGAS MD DR: VESTA/nicolle JOB#: [id number] / [id number] KELSEY Mackenzie MD
[2019-05-30 03:13] VITALS: BP 166/66
[2019-05-30 05:29] LABS: PROTHROMBIN TIME PATIENT 15.4 SEC (11.7-14.0)
[2019-05-30] MEDS: LEVOTHYROXINE 125 MCG TABLET PO SCH (06:00)
[2019-05-30] MEDS: HEPARIN for SUB-Q USE 5,000 UNIT/ML VIAL. SQ SCH ×3 (06:00→21:35)
[2019-05-30] MEDS: CLINDAMYCIN 600MG PREMIX 50 ML IV SCH ×3 (06:34→21:34)
[2019-05-30 07:00] VITALS: BP 153/58
[2019-05-30] MEDS: CLOPIDOGREL BISULFATE 75 MG TABLET PO SCH (08:17)
[2019-05-30] MEDS: METOPROLOL SUCC 24HR ER 25 MG TAB.ER.24H. PO SCH (08:18)
[2019-05-30] MEDS: FAMOTIDINE 20 MG TABLET. PO SCH (08:18)
[2019-05-30] MEDS: SENNOSIDES/DOCUSATE 8.6/50MG TABLET. PO SCH ×2 (08:22→20:20)
[2019-05-30] MEDS: ALLOPURINOL 300 MG TABLET. PO SCH (08:22)
[2019-05-30 09:37] LABS: BASO # 0.1 x10^3/uL (0.0-0.2); BASO % 2 % (0-3); EOS # 0.5 x10^3/uL (0.0-0.7); EOS % 8 % (0-3); LYMPH # 0.9 x10^3/uL (1.0-4.8); LYMPH % 15 % (24-48); MEAN CORPUSCULAR HEMOGLOBIN 29 pg (25-35); MEAN CORPUSCULAR HGB CONC 34 g/dL (31-37); MEAN CORPUSCULAR VOLUME 85 fL (79-100); MONO # 0.6 x10^3/uL (0.0-1.1); MONO % 10 % (0-9); NEUT # 3.8 x10^3/uL (1.8-7.7); NEUT % 65 % (31-73); PLATELET COUNT 257 x10^3/uL (140-400); RED BLOOD COUNT 3.87 x10^6/uL (4.30-5.70); WHITE BLOOD COUNT 5.9 x10^3/uL (4.0-11.0)
[2019-05-30 11:00] VITALS: BP 154/72
--- NOTE | 2019-05-30 12:14 | NUR ---
SS following for discharge planning. SS reviewed pt chart. Pt is from home and is currently on room air. PT/OT ordered and is currently on hold. SS will await PT/OT evaluations and recommendations and will proceed accordingly with discharge planning.
[2019-05-30] MEDS ORDERED: MORPHINE SULFATE 2 MG/ML VIAL. IV PRN (12:30)
[2019-05-30] MEDS ORDERED: fentaNYL PF VIAL 100 MCG/2 ML VIAL IV PRN ×2 (12:30)
[2019-05-30] MEDS ORDERED: ONDANSETRON PF 4 MG/2 ML VIAL. IV PRN (12:30)
[2019-05-30] MEDS ORDERED: PROCHLORPERAZINE 10 MG/2 ML VIAL. IV PRN (12:30)
[2019-05-30] MEDS ORDERED: HYDROmorphone 2 MG/ML VIAL IV PRN (12:30)
[2019-05-30] MEDS ORDERED: IV RINGERS,LACTATED 1000ML 1,000 ML IV SCH (12:30)
--- NOTE | 2019-05-30 12:50 | PDOC ---
Provider Note Provider Note No change in exam or history since last night. Plan left 3rd toe amputation. Questions answered. He elects to proceed. KELLI VARGAS MD May 30, 2019 12:50
[2019-05-30] MEDS ORDERED: LIDOCAINE 1% 20 ML VIAL. ONE (13:09)
--- NOTE | 2019-05-30 13:35 | PDOC ---
[facility] PROGRESS NOTE Chief Complaint Chief Complaint Gangrene left 3rd toe ulcer Righ 2nd toe acute gout flare Chronic AFIB Aortic stenosis HTN Dyslipidemia History of Present Illness History of Present Illness 05/30/19 Pt seen and examined Left 3rd toe gangrenous DW patient DW Dr Corine SAGE RN Reviewed chart Vitals/I&O Vitals/I&O: Vital Signs Date Time Temp Pulse Resp B/P (MAP) Pulse Ox O2 Delivery O2 Flow Rate FiO2 05/30/19 11:00 98.0 55 17 154/72 (99) 96 Room Air 98.0 I & O 05/29/19 05/29/19 05/30/19 14:59 22:59 06:59 Intake Total 350 ml 0 ml Output Total 700 ml Balance 350 ml -700 ml Physical Exam General: Alert, Oriented X3, Cooperative, No acute distress Heart: Other (Chronic AFIB) Lungs: Clear Abdomen: Normal bowel sounds, Soft, No tenderness, No hepatosplenomegaly, No masses Extremities: No clubbing, No cyanosis, No edema, Normal pulses, Other (Right 2nd toe swollen, red, hyperesthetic. Left 3rd toe with open ulcer) Skin: No rashes, No breakdown, No significant lesion Labs Labs: Laboratory Tests Test 05/30/19 04:00 White Blood Count 5.9 x10^3/uL (4.0-11.0) Red Blood Count 3.87 x10^6/uL (4.30-5.70) Hemoglobin 11.0 g/dL (13.0-17.5) Hematocrit 33.0 % (39.0-53.0) Mean Corpuscular Volume 85 fL (79-100) Mean Corpuscular Hemoglobin 29 pg (25-35) Mean Corpuscular Hemoglobin Concent 34 g/dL (31-37) Red Cell Distribution Width 18.0 % (11.5-14.5) Platelet Count 257 x10^3/uL (140-400) Neutrophils (%) (Auto) 65 % (31-73) Lymphocytes (%) (Auto) 15 % (24-48) Monocytes (%) (Auto) 10 % (0-9) Eosinophils (%) (Auto) 8 % (0-3) Basophils (%) (Auto) 2 % (0-3) Neutrophils # (Auto) 3.8 x10^3/uL (1.8-7.7) Lymphocytes # (Auto) 0.9 x10^3/uL (1.0-4.8) Monocytes # (Auto) 0.6 x10^3/uL (0.0-1.1) Eosinophils # (Auto) 0.5 x10^3/uL (0.0-0.7) Basophils # (Auto) 0.1 x10^3/uL (0.0-0.2) Prothrombin Time 15.4 SEC (11.7-14.0) Prothromb Time International Ratio 1.3 (0.8-1.1) Review of Systems Review of Systems: Denies BAUER Denies N/V/D Assessment and Plan Assessmemt and Plan Problems Medical Problems: (1) Aortic stenosis, severe Status: Chronic Assessment Gangrene left 3rd toe ulcer Righ 2nd toe acute gout flare Chronic AFIB Aortic stenosis HTN Dyslipidemia Plan IV Abx Wound care Going in to surgery today PTOT DVT prophylaxis Home meds Comment Review of Relevant I have reviewed the following items chetna (where applicable) has been applied. Medications: Current Medications Medications (Trade) Dose Ordered Sig/Renay Route PRN Reason Start Time Stop Time Status Last Admin Dose Admin Senna/Docusate Sodium (Senna Plus) 1 tab BID PO 05/29/19 21:00 05/29/19 21:45 Metoprolol Succinate (Toprol Xl) 25 mg DAILY PO 05/29/19 16:00 05/30/19 08:20 Simvastatin (Zocor) 20 mg QHS PO 05/29/19 21:00 05/29/19 21:45 Famotidine (Pepcid) 20 mg DAILY PO 05/29/19 16:00 05/30/19 08:20 Acetaminophen/ Hydrocodone Bitart (Lortab 5/325) 2 tab PRN Q4HRS PRN PO MILD PAIN 1-3 05/29/19 16:30 05/29/19 17:22 Heparin Sodium (Porcine) (Heparin Sodium) 5,000 unit Q8HRS SQ 05/29/19 16:30 05/29/19 21:56 Clindamycin Phosphate 50 ml @ 100 mls/hr Q8HRS IV 05/29/19 20:00 05/30/19 06:34 Clopidogrel Bisulfate (Plavix) 75 mg DAILYWBKFT PO 05/30/19 08:00 05/30/19 08:20 RICK DE LA CRUZ III DO May 30, 2019 13:35
[2019-05-30] MEDS ORDERED: LIDOCAINE 2% PF 5 ML VIAL. ONE (13:49)
[2019-05-30] MEDS ORDERED: PHENYLEPHRINE in 0.9% NACL PF 1 MG/10 ML SYRINGE. IV ONE (13:49)
[2019-05-30] MEDS ORDERED: PROPOFOL 20 ML IV ONE (13:49)
[2019-05-30] MEDS ORDERED: fentaNYL PF VIAL 100 MCG/2 ML VIAL ONE (13:59)
[2019-05-30] MEDS ORDERED: ePHEDrine PF IN SALINE 50 MG/10 ML SYRINGE. IV ONE (14:10)
--- NOTE | 2019-05-30 14:24 | PDOC ---
BRIEF OPERATIVE NOTE Pre-Op Diagnosis PVD Left 3rd toe osteomyelitis Aortic stenosis CAD Post-Op Diagnosis same Procedure Performed Left 3rd toe amputation Surgeon Catarino Anesthesia Type: MAC, Local Blood Loss 1ml Specimens Obtained toe Findings Adequate bleeding at the amputation site Gouty debris at proximal interphalangeal joint adjacent to ulcer and exposed bone Complications none KELLI VARGAS MD May 30, 2019 14:23
[2019-05-30 15:15] VITALS: BP 139/55
--- NOTE | 2019-05-30 17:48 | OP ---
DATE OF SURGERY: 05/30/2019 PREOPERATIVE DIAGNOSES: 1. Peripheral vascular disease with nonhealing left third toe ulcer. 2. Left third toe ulcer extending to bone. 3. Left third toe osteomyelitis. 4. Gout. 5. Severe aortic stenosis. 6. Coronary artery disease. POSTOPERATIVE DIAGNOSES: 1. Peripheral vascular disease with nonhealing left third toe ulcer. 2. Left third toe ulcer extending to bone. 3. Left third toe osteomyelitis. 4. Gout. 5. Severe aortic stenosis. 6. Coronary artery disease. PROCEDURE: Left third toe amputation through proximal phalanx with primary closure. SURGEON: Charles Vargas MD ANESTHESIA: Monitored anesthesia care, local. INDICATIONS FOR PROCEDURE: The patient is an 88-year-old male with peripheral arterial disease and long history of gout who developed an ulcer on the left dorsal third toe. This extends down to the bone with clinical osteomyelitis. He presents for toe amputation. FINDINGS: He underwent an amputation of the left toe through the proximal phalanx with good consistency. There is reasonable bleeding at the amputation site. Primary closure was performed. DESCRIPTION OF PROCEDURE: The patient was taken to the operating room and placed supine on the operating table. He underwent IV sedation. His left foot was prepped and draped in normal sterile fashion. 1% lidocaine was used digital block at the base of the left third toe. A fishmouth incision was made just proximal to the area of ulceration of the left third toe. This was extended down through the interphalangeal joint. 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 The distal portion of the proximal phalanx was then resected using a rongeur and mid portion of the proximal phalanx of good consistency. The exposed tendon was excised. The wound was copiously irrigated with saline irrigation. There was minimal bleeding at the amputation site. Hemostasis was obtained. Skin was reapproximated with running 3-0 nylon suture. Xeroform followed by 4 x 4s, Kerlix and a loose Mauro wrap were applied. The patient tolerated the procedure well and there were no complications. ESTIMATED BLOOD LOSS: 1 mL. SPECIMEN: Left third toe. CHARLES VARGAS MD DR: VESTA/nicolle JOB#: [id number] / [id number] KELSEY Mackenzie MD
[2019-05-30 19:05] VITALS: BP 146/52
--- NOTE | 2019-05-30 19:16 | NUR ---
Post op vitals in chart
[2019-05-30] MEDS: LACTOBACILLUS RHAMNOSUS GG 1 CAPSULE. PO SCH (20:19)
[2019-05-30] MEDS: HYDROcodone/APAP 5/325MG 1 TAB TABLET PO PRN (20:20)
[2019-05-30] MEDS: SIMVASTATIN 20 MG TABLET PO SCH (20:20)
[2019-05-30] MEDS: MORPHINE SULFATE 2 MG/ML VIAL. IV PRN ×3 (21:41→23:55)
[2019-05-30 23:00] VITALS: BP 122/58
[2019-05-31] MEDS: HYDROcodone/APAP 5/325MG 1 TAB TABLET PO PRN ×2 (03:05→09:23)
[2019-05-31 03:33] VITALS: BP 120/56
[2019-05-31 04:31] LABS: BASO # 0.1 x10^3/uL (0.0-0.2); BASO % 1 % (0-3); EOS # 0.4 x10^3/uL (0.0-0.7); EOS % 6 % (0-3); HEMATOCRIT 30.3 % (39.0-53.0); HEMOGLOBIN 10.3 g/dL (13.0-17.5); LYMPH # 0.7 x10^3/uL (1.0-4.8); LYMPH % 11 % (24-48); MEAN CORPUSCULAR HEMOGLOBIN 29 pg (25-35); MEAN CORPUSCULAR HGB CONC 34 g/dL (31-37); MEAN CORPUSCULAR VOLUME 85 fL (79-100); MONO # 0.6 x10^3/uL (0.0-1.1); MONO % 9 % (0-9); NEUT # 4.8 x10^3/uL (1.8-7.7); NEUT % 73 % (31-73); PLATELET COUNT 233 x10^3/uL (140-400); RED BLOOD COUNT 3.59 x10^6/uL (4.30-5.70); RED CELL DISTRIBUTION WIDTH 17.8 % (11.5-14.5); WHITE BLOOD COUNT 6.6 x10^3/uL (4.0-11.0)
[2019-05-31 04:54] LABS: CALCIUM 8.7 mg/dL (8.5-10.1); CREATININE 1.2 mg/dL (0.7-1.3); POTASSIUM 4.2 mmol/L (3.5-5.1)
[2019-05-31] MEDS: HEPARIN for SUB-Q USE 5,000 UNIT/ML VIAL. SQ SCH ×3 (06:13→21:02)
[2019-05-31] MEDS: LEVOTHYROXINE 125 MCG TABLET PO SCH (06:14)
[2019-05-31] MEDS: CLINDAMYCIN 600MG PREMIX 50 ML IV SCH ×3 (06:14→20:58)
[2019-05-31 07:00] VITALS: BP 139/52
[2019-05-31] MEDS: SENNOSIDES/DOCUSATE 8.6/50MG TABLET. PO SCH ×2 (08:20→20:57)
[2019-05-31] MEDS: LACTOBACILLUS RHAMNOSUS GG 1 CAPSULE. PO SCH ×2 (08:20→20:57)
[2019-05-31] MEDS: ALLOPURINOL 300 MG TABLET. PO SCH (08:20)
[2019-05-31] MEDS: FAMOTIDINE 20 MG TABLET. PO SCH (08:20)
[2019-05-31] MEDS: METOPROLOL SUCC 24HR ER 25 MG TAB.ER.24H. PO SCH (08:21)
[2019-05-31] MEDS: CLOPIDOGREL BISULFATE 75 MG TABLET PO SCH (08:21)
[2019-05-31] MEDS: MULTIVITAMIN with MINERAL TABLET. PO SCH (08:21)
[2019-05-31 11:03] VITALS: BP 142/52
[2019-05-31] MEDS: MORPHINE SULFATE 2 MG/ML VIAL. IV PRN (13:19)
--- NOTE | 2019-05-31 13:50 | PDOC ---
Provider Note Provider Note Pt seen and examined today c/o pain at toe amp site VSS left groin incision well healed left foot dressing taken down -- toe amp site looks good, RN to re-dress Can go home with forefoot wedge offloading shoe likely tomorrow. Continue care GEOFF CESAR MD May 31, 2019 13:50
[2019-05-31 15:33] VITALS: BP 138/65
--- NOTE | 2019-05-31 18:01 | PDOC ---
PROGRESS NOTES Chief Complaint Chief Complaint Peripheral vascular disease with nonhealing left third toe OM s/p amputation through proximal phalanx with primary closure. Righ 2nd toe acute gout flare Chronic AFIB Aortic stenosis HTN Dyslipidemia Coronary artery disease. History of Present Illness History of Present Illness pain not controlled. will escalate to morphine IV. can likely be discharged tomorrow if pain controlled. continue IV clinda. likely no abx if margins clean will need forefoot wedge offloading shoe prior to dc Vitals Vitals Vital Signs Date Time Temp Pulse Resp B/P (MAP) Pulse Ox O2 Delivery O2 Flow Rate FiO2 05/31/19 15:33 97.5 65 20 138/65 (89) 93 Room Air 97.5 05/31/19 13:23 2.0 Physical Exam General: Alert, Oriented X3, Cooperative, No acute distress Heart: Other (Chronic AFIB) Lungs: Clear Abdomen: Normal bowel sounds, Soft, No tenderness, No hepatosplenomegaly, No masses Extremities: No clubbing, No cyanosis, No edema, Normal pulses, Other (Right 2nd toe swollen, red, hyperesthetic. Left 3rd toe with open ulcer) Skin: No rashes, No breakdown, No significant lesion Labs LABS Laboratory Tests Test 05/31/19 04:00 White Blood Count 6.6 x10^3/uL (4.0-11.0) Red Blood Count 3.59 x10^6/uL (4.30-5.70) Hemoglobin 10.3 g/dL (13.0-17.5) Hematocrit 30.3 % (39.0-53.0) Mean Corpuscular Volume 85 fL (79-100) Mean Corpuscular Hemoglobin 29 pg (25-35) Mean Corpuscular Hemoglobin Concent 34 g/dL (31-37) Red Cell Distribution Width 17.8 % (11.5-14.5) Platelet Count 233 x10^3/uL (140-400) Neutrophils (%) (Auto) 73 % (31-73) Lymphocytes (%) (Auto) 11 % (24-48) Monocytes (%) (Auto) 9 % (0-9) Eosinophils (%) (Auto) 6 % (0-3) Basophils (%) (Auto) 1 % (0-3) Neutrophils # (Auto) 4.8 x10^3/uL (1.8-7.7) Lymphocytes # (Auto) 0.7 x10^3/uL (1.0-4.8) Monocytes # (Auto) 0.6 x10^3/uL (0.0-1.1) Eosinophils # (Auto) 0.4 x10^3/uL (0.0-0.7) Basophils # (Auto) 0.1 x10^3/uL (0.0-0.2) Sodium Level 143 mmol/L (136-145) Potassium Level 4.2 mmol/L (3.5-5.1) Chloride Level 107 mmol/L (98-107) Carbon Dioxide Level 27 mmol/L (21-32) Anion Gap 9 (6-14) Blood Urea Nitrogen 16 mg/dL (8-26) Creatinine 1.2 mg/dL (0.7-1.3) Estimated GFR (Cockcroft-Gault) 57.0 Glucose Level 107 mg/dL (70-99) Calcium Level 8.7 mg/dL (8.5-10.1) Assessment and Plan Assessmemt and Plan Problems Medical Problems: (1) Aortic stenosis, severe Status: Chronic Comment Review of Relevant I have reviewed the following items chetna (where applicable) has been applied. Labs Laboratory Tests Test 05/30/19 04:00 05/31/19 04:00 White Blood Count 5.9 x10^3/uL (4.0-11.0) 6.6 x10^3/uL (4.0-11.0) Red Blood Count 3.87 x10^6/uL (4.30-5.70) 3.59 x10^6/uL (4.30-5.70) Hemoglobin 11.0 g/dL (13.0-17.5) 10.3 g/dL (13.0-17.5) Hematocrit 33.0 % (39.0-53.0) 30.3 % (39.0-53.0) Mean Corpuscular Volume 85 fL (79-100) 85 fL (79-100) Mean Corpuscular Hemoglobin 29 pg (25-35) 29 pg (25-35) Mean Corpuscular Hemoglobin Concent 34 g/dL (31-37) 34 g/dL (31-37) Red Cell Distribution Width 18.0 % (11.5-14.5) 17.8 % (11.5-14.5) Platelet Count 257 x10^3/uL (140-400) 233 x10^3/uL (140-400) Neutrophils (%) (Auto) 65 % (31-73) 73 % (31-73) Lymphocytes (%) (Auto) 15 % (24-48) 11 % (24-48) Monocytes (%) (Auto) 10 % (0-9) 9 % (0-9) Eosinophils (%) (Auto) 8 % (0-3) 6 % (0-3) Basophils (%) (Auto) 2 % (0-3) 1 % (0-3) Neutrophils # (Auto) 3.8 x10^3/uL (1.8-7.7) 4.8 x10^3/uL (1.8-7.7) Lymphocytes # (Auto) 0.9 x10^3/uL (1.0-4.8) 0.7 x10^3/uL (1.0-4.8) Monocytes # (Auto) 0.6 x10^3/uL (0.0-1.1) 0.6 x10^3/uL (0.0-1.1) Eosinophils # (Auto) 0.5 x10^3/uL (0.0-0.7) 0.4 x10^3/uL (0.0-0.7) Basophils # (Auto) 0.1 x10^3/uL (0.0-0.2) 0.1 x10^3/uL (0.0-0.2) Prothrombin Time 15.4 SEC (11.7-14.0) Prothromb Time International Ratio 1.3 (0.8-1.1) Sodium Level 143 mmol/L (136-145) Potassium Level 4.2 mmol/L (3.5-5.1) Chloride Level 107 mmol/L (98-107) Carbon Dioxide Level 27 mmol/L (21-32) Anion Gap 9 (6-14) Blood Urea Nitrogen 16 mg/dL (8-26) Creatinine 1.2 mg/dL (0.7-1.3) Estimated GFR (Cockcroft-Gault) 57.0 Glucose Level 107 mg/dL (70-99) Calcium Level 8.7 mg/dL (8.5-10.1) Laboratory Tests Test 05/31/19 04:00 White Blood Count 6.6 x10^3/uL (4.0-11.0) Red Blood Count 3.59 x10^6/uL (4.30-5.70) Hemoglobin 10.3 g/dL (13.0-17.5) Hematocrit 30.3 % (39.0-53.0) Mean Corpuscular Volume 85 fL (79-100) Mean Corpuscular Hemoglobin 29 pg (25-35) Mean Corpuscular Hemoglobin Concent 34 g/dL (31-37) Red Cell Distribution Width 17.8 % (11.5-14.5) Platelet Count 233 x10^3/uL (140-400) Neutrophils (%) (Auto) 73 % (31-73) Lymphocytes (%) (Auto) 11 % (24-48) Monocytes (%) (Auto) 9 % (0-9) Eosinophils (%) (Auto) 6 % (0-3) Basophils (%) (Auto) 1 % (0-3) Neutrophils # (Auto) 4.8 x10^3/uL (1.8-7.7) Lymphocytes # (Auto) 0.7 x10^3/uL (1.0-4.8) Monocytes # (Auto) 0.6 x10^3/uL (0.0-1.1) Eosinophils # (Auto) 0.4 x10^3/uL (0.0-0.7) Basophils # (Auto) 0.1 x10^3/uL (0.0-0.2) Sodium Level 143 mmol/L (136-145) Potassium Level 4.2 mmol/L (3.5-5.1) Chloride Level 107 mmol/L (98-107) Carbon Dioxide Level 27 mmol/L (21-32) Anion Gap 9 (6-14) Blood Urea Nitrogen 16 mg/dL (8-26) Creatinine 1.2 mg/dL (0.7-1.3) Estimated GFR (Cockcroft-Gault) 57.0 Glucose Level 107 mg/dL (70-99) Calcium Level 8.7 mg/dL (8.5-10.1) Medications Current Medications Ondansetron HCl (Zofran) 4 mg PRN Q6HRS PRN IV NAUSEA/VOMITING; Start 05/29/19 at 15:30 Morphine Sulfate (Morphine Sulfate) 2 mg PRN Q1HR PRN IV PAIN Last administered on 05/31/19 13:23; Start 05/29/19 at 15:30 Acetaminophen/ Hydrocodone Bitart (Lortab 5/325) 1 tab PRN Q4HRS PRN PO MILD PAIN 1-3; Start 05/29/19 at 15:30; Stop 05/29/19 at 16:23; Status DC Acetaminophen (Tylenol) 650 mg PRN Q6HRS PRN PO Headaches, Temp > 101.5F; Start 05/29/19 at 15:30 Senna/Docusate Sodium (Senna Plus) 1 tab BID PO Last administered on 05/31/19 08:25; Start 05/29/19 at 21:00 Lactulose (Lactulose) 20 gm PRN Q12HR PRN PO CONSTIPATION; Start 05/29/19 at 15:30 Bisacodyl (Dulcolax Supp) 10 mg PRN DAILY PRN HI CONSTIPATION; Start 05/29/19 at 15:30 Allopurinol (Zyloprim) 300 mg DAILY PO Last administered on 05/31/19 08:25; Start 05/29/19 at 16:00 Levothyroxine Sodium (Synthroid) 125 mcg DAILY06 PO Last administered on 05/31/19 06:14; Start 05/29/19 at 16:00 Metoprolol Succinate (Toprol Xl) 25 mg DAILY PO Last administered on 05/31/19 08:25; Start 05/29/19 at 16:00 Simvastatin (Zocor) 20 mg QHS PO Last administered on 05/30/19 20:20; Start 05/29/19 at 21:00 Famotidine (Pepcid) 20 mg DAILY PO Last administered on 05/31/19 08:25; Start 05/29/19 at 16:00 Acetaminophen/ Hydrocodone Bitart (Lortab 5/325) 2 tab PRN Q4HRS PRN PO MILD PAIN 1-3 Last administered on 05/31/19 09:24; Start 05/29/19 at 16:30 Heparin Sodium (Porcine) (Heparin Sodium) 5,000 unit Q8HRS SQ Last administered on 05/31/19at 15:08; Start 05/29/19 at 16:30 Clindamycin Phosphate 50 ml @ 100 mls/hr Q8HRS IV Last administered on 05/31/19at 15:08; Start 05/29/19 at 20:00 Clopidogrel Bisulfate (Plavix) 75 mg DAILYWBKFT PO Last administered on 05/31/19at 08:25; Start 05/30/19 at 08:00 Lactobacillus Rhamnosus (Culturelle) 1 cap BID PO Last administered on 05/31/19at 08:25; Start 05/30/19 at 21:00 Cefazolin Sodium 1 gm/Sodium Chloride 250 ml @ 250 mls/hr 1X ONCE IV ; Start 05/30/19 at 11:00; Stop 05/30/19 at 11:04; Status DC Cefazolin Sodium 1 gm/Sodium Chloride 250 ml @ 250 mls/hr 1X ONCE IRR Last administered on 05/30/19at 14:15; Start 05/30/19 at 11:15; Stop 05/30/19 at 12:14; Status DC Ondansetron HCl (Zofran) 4 mg PRN Q6HRS PRN IV NAUSEA/VOMITING; Start 05/30/19 at 12:30; Stop 05/30/19 at 21:00; Status DC Fentanyl Citrate (Fentanyl 2ml Vial) 25 mcg PRN Q5MIN PRN IV MILD PAIN 1-3; Start 05/30/19 at 12:30; Stop 05/30/19 at 21:00; Status DC Fentanyl Citrate (Fentanyl 2ml Vial) 50 mcg PRN Q5MIN PRN IV MODERATE TO SEVERE PAIN; Start 05/30/19 at 12:30; Stop 05/30/19 at 21:00; Status DC Morphine Sulfate (Morphine Sulfate) 1 mg PRN Q10MIN PRN IV SEVERE PAIN 7-10; Start 05/30/19 at 12:30; Stop 05/30/19 at 21:00; Status DC Ringer's Solution 1,000 ml @ 30 mls/hr Q24H IV Last administered on 05/30/19at 17:29; Start 05/30/19 at 12:30; Stop 05/30/19 at 21:00; Status DC Hydromorphone HCl (Dilaudid) 0.5 mg PRN Q10MIN PRN IV SEV PAIN, Second choice; Start 05/30/19 at 12:30; Stop 05/30/19 at 21:00; Status DC Prochlorperazine Edisylate (Compazine) 5 mg PACU PRN PRN IV NAUSEA, MRX1; Sta rt 05/30/19 at 12:30; Stop 05/30/19 at 21:00; Status DC Propofol 20 ml @ As Directed STK-MED ONCE IV ; Start 05/30/19 at 13:49; Stop 05/30/19 at 13:49; Status DC Lidocaine HCl (Lidocaine Pf 2% Vial) 5 ml STK-MED ONCE .ROUTE ; Start 05/30/19 at 13:49; Stop 05/30/19 at 13:49; Status DC Phenylephrine HCl (PHENYLEPHRINE in 0.9% NACL PF) 1 mg STK-MED ONCE IV ; Start 05/30/19 at 13:49; Stop 05/30/19 at 13:49; Status DC Fentanyl Citrate (Fentanyl 2ml Vial) 100 mcg STK-MED ONCE .ROUTE ; Start 05/30/19 at 13:59; Stop 05/30/19 at 13:59; Status DC Lidocaine HCl 20 ml STK-MED ONCE .ROUTE Last administered on 05/30/19at 14:15; Start 05/30/19 at 13:09; Stop 05/30/19 at 14:09; Status DC Ephedrine Sulfate (ePHEDrine PF IN SALINE SYRINGE) 50 mg STK-MED ONCE IV ; Start 05/30/19 at 14:10; Stop 05/30/19 at 14:10; Status DC Multivitamins (Thera M Plus) 1 tab DAILY PO Last administered on 05/31/19at 08:25; Start 05/31/19 at 09:00 Active Scripts Active [place] 5-325 Tablet (Acetaminophen/Hydrocodone Bitart) 1 Each Tablet 1 Tab PO PRN Q6HRS PRN Reported Allopurinol 300 Mg Tablet 300 Mg PO DAILY Ranitidine Hcl 150 Mg Capsule 150 Mg PO DAILY Clopidogrel (Clopidogrel Bisulfate) 75 Mg Tablet 75 Mg PO DAILY Xarelto (Rivaroxaban) 20 Mg Tablet 20 Mg PO DAILY Simvastatin 20 Mg Tablet 1 Tab PO QHS Metoprolol Succinate ( Xl ) (Metoprolol Succinate) 25 Mg Tab.er.24h 1 Tab PO DAILY Levothyroxine Sodium 125 Mcg Tablet 1 Tab PO DAILY Amlodipine-Benazepril 10-20 Mg (Amlodipine Besylate/Benazepril) 1 Each Capsule 1 Cap PO DAILY Vitals/I & O Vital Sign - Last 24 Hours 05/30/19 05/30/19 05/30/19 05/30/19 19:05 20:00 20:20 21:37 Temp 98.0 98.0 Pulse 63 Resp 24 B/P (MAP) 146/52 (83) Pulse Ox 93 93 93 O2 Delivery Room Air Room Air Room Air Room Air O2 Flow Rate 2.0 05/30/19 05/30/19 05/30/19 05/30/19 21:41 22:16 22:49 23:00 Temp 97.7 97.7 Pulse 54 Resp 25 B/P (MAP) 122/58 (79) Pulse Ox 93 99 O2 Delivery Room Air Room Air Room Air Room Air 05/30/19 05/30/19 05/31/19 05/31/19 23:45 23:55 01:12 03:05 Pulse Ox 99 99 O2 Delivery Room Air Room Air Room Air Room Air 05/31/19 05/31/19 05/31/19 05/31/19 03:33 04:58 07:00 08:00 Temp 97.9 97.6 97.9 97.6 Pulse 55 55 Resp 22 22 B/P (MAP) 120/56 (77) 139/52 (81) Pulse Ox 98 100 O2 Delivery Room Air Room Air Room Air Room Air O2 Flow Rate 2.0 05/31/19 05/31/19 05/31/19 05/31/19 08:25 09:24 11:03 13:23 Temp 97.8 97.8 Pulse 55 56 Resp 22 20 B/P (MAP) 139/52 142/52 (82) Pulse Ox 100 97 97 O2 Delivery Room Air Room Air Room Air O2 Flow Rate 2.0 05/31/19 05/31/19 05/31/19 14:54 14:54 15:33 Temp 97.5 97.5 Pulse 65 Resp 20 20 20 B/P (MAP) 138/65 (89) Pulse Ox 97 97 93 O2 Delivery Room Air Room Air Room Air Intake and Output 05/30/19 05/30/19 05/31/19 15:00 23:00 07:00 Intake Total 600 ml 500 ml 200 ml Output Total 1 ml 200 ml 0 ml Balance 599 ml 300 ml 200 ml CHINO VANCE MD May 31, 2019 18:01
--- NOTE | 2019-05-31 18:35 | NUR ---
PATIENT IS USING VULGAR LANGUAGE TOWARDS STAFF AND VERY AGGRESSIVE. SECURITY AT THE BEDSIDE . REFUSING TO WEAR OXYGEN MASK. CALLED DR. RAMON AND NOTIFIED OF PATIENT'S BEHAVIOR. RECEIVED ORDERS.
[2019-05-31 19:15] VITALS: BP 153/70
[2019-05-31] MEDS: SIMVASTATIN 20 MG TABLET PO SCH (20:57)
[2019-05-31] MEDS ORDERED: MORPHINE ER 15 MG TABLET.ER PO ONE (21:00)
[2019-05-31 23:26] VITALS: BP 152/58
[2019-06-01 03:40] VITALS: BP 142/66
[2019-06-01 04:34] LABS: BASO # 0.1 x10^3/uL (0.0-0.2); BASO % 1 % (0-3); EOS # 0.5 x10^3/uL (0.0-0.7); EOS % 7 % (0-3); HEMATOCRIT 33.3 % (39.0-53.0); HEMOGLOBIN 11.3 g/dL (13.0-17.5); LYMPH % 16 % (24-48); MEAN CORPUSCULAR HEMOGLOBIN 29 pg (25-35); MEAN CORPUSCULAR HGB CONC 34 g/dL (31-37); MEAN CORPUSCULAR VOLUME 85 fL (79-100); MONO # 0.5 x10^3/uL (0.0-1.1); MONO % 9 % (0-9); NEUT # 4.2 x10^3/uL (1.8-7.7); NEUT % 67 % (31-73); PLATELET COUNT 264 x10^3/uL (140-400); RED BLOOD COUNT 3.92 x10^6/uL (4.30-5.70); RED CELL DISTRIBUTION WIDTH 17.9 % (11.5-14.5); WHITE BLOOD COUNT 6.3 x10^3/uL (4.0-11.0)
[2019-06-01 04:51] LABS: CALCIUM 9.3 mg/dL (8.5-10.1); CREATININE 1.3 mg/dL (0.7-1.3); POTASSIUM 4.4 mmol/L (3.5-5.1)
[2019-06-01] MEDS: HEPARIN for SUB-Q USE 5,000 UNIT/ML VIAL. SQ SCH (05:49)
[2019-06-01] MEDS: CLINDAMYCIN 600MG PREMIX 50 ML IV SCH (05:50)
[2019-06-01] MEDS: LEVOTHYROXINE 125 MCG TABLET PO SCH (05:50)
[2019-06-01 07:43] VITALS: BP 146/59
[2019-06-01] MEDS: FAMOTIDINE 20 MG TABLET. PO SCH (09:00)
[2019-06-01] MEDS: ALLOPURINOL 300 MG TABLET. PO SCH (09:00)
[2019-06-01] MEDS: CLOPIDOGREL BISULFATE 75 MG TABLET PO SCH (09:00)
[2019-06-01] MEDS: MULTIVITAMIN with MINERAL TABLET. PO SCH (09:00)
[2019-06-01] MEDS: LACTOBACILLUS RHAMNOSUS GG 1 CAPSULE. PO SCH (09:00)
[2019-06-01] MEDS: METOPROLOL SUCC 24HR ER 25 MG TAB.ER.24H. PO SCH (09:01)
[2019-06-01] MEDS: SENNOSIDES/DOCUSATE 8.6/50MG TABLET. PO SCH (09:02)
[2019-06-01] MEDS ORDERED: HYDR-3164 PO (10:12)
[2019-06-01] MEDS ORDERED: CLIN300C8 PO (10:14)
[2019-06-01 11:02] VITALS: BP 133/50
--- NOTE | 2019-06-01 11:15 | PDOC3 ---
Discharge Summary Visit Information Date of Admission: May 29, 2019 Date of Discharge: Jun 01, 2019 Final Diagnosis Problems Medical Problems: (1) Peripheral vascular disease with nonhealing left third toe OM s/p amputation through proximal phalanx with primary closure. Brief Hospital Course Allergies Allergies Coded Allergies Type Severity Reaction Last Updated Verified No Known Drug Allergies 05/20/19 No Vital Signs GENERAL: No apparent distress. Alert and oriented. HEENT: Head normocephalic, atraumatic. NECK: Supple LUNGS: Clear to auscultation. HEART: RRR, S1, S2 present, pulses intact ABDOMEN: Soft, positive bowel sounds. EXTREMITIES: left foot wrapped NEUROLOGIC: Normal speech, normal tone PSYCHIATRIC: Normal affect, normal mood. SKIN: No ulceration. Vital Signs Date Time Temp Pulse Resp B/P (MAP) Pulse Ox O2 Delivery O2 Flow Rate FiO2 06/01/19 11:02 98.7 60 21 133/50 (77) 97 Room Air 98.7 05/31/19 13:23 2.0 Lab Results Laboratory Tests Test 05/31/19 04:00 06/01/19 04:00 White Blood Count 6.6 x10^3/uL (4.0-11.0) 6.3 x10^3/uL (4.0-11.0) Red Blood Count 3.59 x10^6/uL (4.30-5.70) 3.92 x10^6/uL (4.30-5.70) Hemoglobin 10.3 g/dL (13.0-17.5) 11.3 g/dL (13.0-17.5) Hematocrit 30.3 % (39.0-53.0) 33.3 % (39.0-53.0) Mean Corpuscular Volume 85 fL (79-100) 85 fL (79-100) Mean Corpuscular Hemoglobin 29 pg (25-35) 29 pg (25-35) Mean Corpuscular Hemoglobin Concent 34 g/dL (31-37) 34 g/dL (31-37) Red Cell Distribution Width 17.8 % (11.5-14.5) 17.9 % (11.5-14.5) Platelet Count 233 x10^3/uL (140-400) 264 x10^3/uL (140-400) Neutrophils (%) (Auto) 73 % (31-73) 67 % (31-73) Lymphocytes (%) (Auto) 11 % (24-48) 16 % (24-48) Monocytes (%) (Auto) 9 % (0-9) 9 % (0-9) Eosinophils (%) (Auto) 6 % (0-3) 7 % (0-3) Basophils (%) (Auto) 1 % (0-3) 1 % (0-3) Neutrophils # (Auto) 4.8 x10^3/uL (1.8-7.7) 4.2 x10^3/uL (1.8-7.7) Lymphocytes # (Auto) 0.7 x10^3/uL (1.0-4.8) 1.0 x10^3/uL (1.0-4.8) Monocytes # (Auto) 0.6 x10^3/uL (0.0-1.1) 0.5 x10^3/uL (0.0-1.1) Eosinophils # (Auto) 0.4 x10^3/uL (0.0-0.7) 0.5 x10^3/uL (0.0-0.7) Basophils # (Auto) 0.1 x10^3/uL (0.0-0.2) 0.1 x10^3/uL (0.0-0.2) Sodium Level 143 mmol/L (136-145) 140 mmol/L (136-145) Potassium Level 4.2 mmol/L (3.5-5.1) 4.4 mmol/L (3.5-5.1) Chloride Level 107 mmol/L (98-107) 103 mmol/L (98-107) Carbon Dioxide Level 27 mmol/L (21-32) 24 mmol/L (21-32) Anion Gap 9 (6-14) 13 (6-14) Blood Urea Nitrogen 16 mg/dL (8-26) 27 mg/dL (8-26) Creatinine 1.2 mg/dL (0.7-1.3) 1.3 mg/dL (0.7-1.3) Estimated GFR (Cockcroft-Gault) 57.0 52.0 Glucose Level 107 mg/dL (70-99) 112 mg/dL (70-99) Calcium Level 8.7 mg/dL (8.5-10.1) 9.3 mg/dL (8.5-10.1) Laboratory Tests Test 06/01/19 04:00 White Blood Count 6.3 x10^3/uL (4.0-11.0) Red Blood Count 3.92 x10^6/uL (4.30-5.70) Hemoglobin 11.3 g/dL (13.0-17.5) Hematocrit 33.3 % (39.0-53.0) Mean Corpuscular Volume 85 fL (79-100) Mean Corpuscular Hemoglobin 29 pg (25-35) Mean Corpuscular Hemoglobin Concent 34 g/dL (31-37) Red Cell Distribution Width 17.9 % (11.5-14.5) Platelet Count 264 x10^3/uL (140-400) Neutrophils (%) (Auto) 67 % (31-73) Lymphocytes (%) (Auto) 16 % (24-48) Monocytes (%) (Auto) 9 % (0-9) Eosinophils (%) (Auto) 7 % (0-3) Basophils (%) (Auto) 1 % (0-3) Neutrophils # (Auto) 4.2 x10^3/uL (1.8-7.7) Lymphocytes # (Auto) 1.0 x10^3/uL (1.0-4.8) Monocytes # (Auto) 0.5 x10^3/uL (0.0-1.1) Eosinophils # (Auto) 0.5 x10^3/uL (0.0-0.7) Basophils # (Auto) 0.1 x10^3/uL (0.0-0.2) Sodium Level 140 mmol/L (136-145) Potassium Level 4.4 mmol/L (3.5-5.1) Chloride Level 103 mmol/L (98-107) Carbon Dioxide Level 24 mmol/L (21-32) Anion Gap 13 (6-14) Blood Urea Nitrogen 27 mg/dL (8-26) Creatinine 1.3 mg/dL (0.7-1.3) Estimated GFR (Cockcroft-Gault) 52.0 Glucose Level 112 mg/dL (70-99) Calcium Level 9.3 mg/dL (8.5-10.1) Brief Hospital Course 88yo M w/ PMHx Gout, Severe/critical aortic stenosis, chronic paroxsymal atrial fibrillation, HTN, HLD, PAD with crippling claudication history with recent left common femoral and profunda femoral endarterectomy on 05/21/2019 who presents directly from the wound clinic for concern for ulceration of the anterior aspect of the DIP of his left third toe with a visible gout crystal and photo of visible bone and severe intractable pain 09/30 according to the patient. At the same time he has severe pain, redness, swelling and hyperesthesia of the 2nd toe of his right foot, states he was given doxycycline to treat a gout flare up there. admitted to hospitalist service for further work up. Patient with Peripheral vascular disease with nonhealing left third toe OM s/p amputation through proximal phalanx with primary closure by ortho on 05/30. pain controlled with IV morphine post op. was placed on clinda. wound cultures growing gpc. will plan to send home on 7 days of clinda. patient also with Right 2nd toe acute gout flare that resolved. afib stable, continue oral ac. will be on plavix for PVD and CAD. patient will need forefoot wedge offloading shoe prior to dc. he will get script for pain meds prior to discharge. patient to follow up with PCP in 2 weeks. >30 min spent on discharge Discharge Information Condition at Discharge: Stable Follow Up: Weeks (PCP in 2 weeks) Disposition/Orders: D/C to Home Scheduled Allopurinol (Allopurinol) 300 Mg Tablet, 300 MG PO DAILY for GOUT, (Reported) Entered as Reported by: JAYLIN MUÑOZ on 05/20/19 1347 Last Action: Reviewed on 05/29/191722 by CHAY MORALES Amlodipine Besylate/Benazepril (Amlodipine-Benazepril 10-20 Mg) 1 Each Capsule, 1 CAP PO DAILY, #30 Ref 5 (Reported) Entered as Reported by: YOANDY HALL on 06/07/17 1103 Last Action: Reviewed on 05/29/191722 by CHAY MORALES Clindamycin Hcl (Clindamycin Hcl) 300 Mg Capsule, 1 CAP PO TID for cellulitis for 7 Days, #21 Prescribed by: CHINO VANCE MD on 06/01/19 1014 Clopidogrel Bisulfate (Clopidogrel) 75 Mg Tablet, 75 MG PO DAILY for TO PREVENT BLOOD CLOTS, #30 Ref 0 (Reported) Entered as Reported by: JAYLIN MUÑOZ on 05/20/191346 Last Action: Reviewed on 05/29/191722 by CHAY MORALES Levothyroxine Sodium (Levothyroxine Sodium) 125 Mcg Tablet, 1 TAB PO DAILY, #30 Ref 5 (Reported) Entered as Reported by: YOANDY HALL on 06/07/171102 Last Action: Reviewed on 05/29/191722 by CHAY MORALES Metoprolol Succinate (Metoprolol Succinate ( Xl )) 25 Mg Tab.er.24h, 1 TAB PO DAILY, #30 Ref 5 (Reported) Entered as Reported by: YOANDY HALL on 06/07/171102 Last Action: Reviewed on 05/29/191722 by CHAY MORALES Ranitidine Hcl (Ranitidine Hcl) 150 Mg Capsule, 150 MG PO DAILY for REFLUX, (Reported) Entered as Reported by: JAYLIN MUÑOZ on 05/20/191346 Last Action: Reviewed on 05/29/191722 by CHAY MORALES Rivaroxaban (Xarelto) 20 Mg Tablet, 20 MG PO DAILY for clot, (Reported) Entered as Reported by: YAONDY HALL on 06/07/171102 Last Action: Reviewed on 05/29/191722 by CHAY MORALES Simvastatin (Simvastatin) 20 Mg Tablet, 1 TAB PO QHS, #30 Ref 5 (Reported) Entered as Reported by: YOANDY HALL on 06/07/171102 Last Action: Reviewed on 05/29/191722 by CHAY MORALES Scheduled PRN Hydrocodone/[place] 5-325 ([place] 5-325 Tablet) 1 Each Tablet, 1 TAB PO PRN Q6HRS PRN for PAIN for 5 Days, #20 Ref 0 Prescribed by: CHINO VANCE MD on 06/01/19 1012 CHINO VANCE MD Jun 01, 2019 11:15
--- NOTE | 2019-06-01 11:18 | PDOC ---
Provider Note Provider Note Ok to discharge home when offloading shoe available -- may ambulate with this may remove dressing and open to air on Sunday follow up with Vascular Surgery for wound check in 2 weeks GEOFF CESAR MD Jun 01, 2019 11:18
--- NOTE | 2019-06-01 13:15 | NUR ---
Discharge Note: JAMEE HOPKINS [place] Discharge instructions and discharge home medications reviewed with Patient and a copy given. All questions have been answered and understanding verbalized. The following instructions and handouts were given: medication list, written prescriptions, written post surgery education, follow up appointment, walker Discontinued lines and drains: IV discontinued and dressing, clean, dry intact. Patient discharged to home with son via wheelchair
== END 2019-06-01 13:50 | disposition home or self-care (01) | DRG 256 ==
LOC: 2 NORTH 14:54
PROVIDERS: ADMIT Internal Medicine; ATTEND Internal Medicine
PROC: 0Y6U0Z1 Detachment at Left 3rd Toe, High, Open Approach (ICD-10-PCS; principal; 2019-05-30 14:30)
DX: I73.9 Peripheral vascular disease, unspecified (principal); L03.90 Cellulitis, unspecified; M86.8X7 Other osteomyelitis, ankle and foot; L97.529 Non-pressure chronic ulcer of other part of left foot with unspecified severity; E78.00 Pure hypercholesterolemia, unspecified; E78.5 Hyperlipidemia, unspecified; I10 Essential (primary) hypertension; I25.10 Atherosclerotic heart disease of native coronary artery without angina pectoris; I35.0 Nonrheumatic aortic (valve) stenosis; I48.0 Paroxysmal atrial fibrillation; K21.9 Gastro-esophageal reflux disease without esophagitis; M19.90 Unspecified osteoarthritis, unspecified site; M1A.9XX1 Chronic gout, unspecified, with tophus (tophi); Z79.01 Long term (current) use of anticoagulants; Z82.49 Family history of ischemic heart disease and other diseases of the circulatory system; Z95.2 Presence of prosthetic heart valve; Z87.891 Personal history of nicotine dependence
CPT/HCPCS: 36415; 73660; 80048; 85025; 85610; 87071; 87075; J0171; J1644; J2001; J2270; J2370; J2704; J3010; J3490; J7120; 97116; A4461; G0378

== ENCOUNTER 2019-11-04 22:00 | Emergency (ER) | payer MEDICARE, BC ==
[~2019-11-04] VITALS: Ht 160 cm; Wt 69.9 kg
[~2019-11-04 22:00] MED LIST changes: +CLIN300C8 PO; +SIMV20TA18 PO; -SIMV20TA3 PO
[2019-11-04 22:21] VITALS: BP 140/67
--- NOTE | 2019-11-04 22:46 | PHYS DOC ---
Past Medical History Past Medical History: GERD, High Cholesterol, Hypertension Additional Past Medical Histor: peripheral arterial disease; pt "needs heart valve replacement" Past Surgical History: Other Additional Past Surgical Histo: right groin stent; right shoulder Alcohol Use: Occasionally Drug Use: None Adult General Chief Complaint Chief Complaint: TONGUE SWELLING/INJURY [facility] HPI Patient is a 88 year old male with history of hypertension, high cholesterol, currently on Xarelto for heart valve replacement who presents to the ED today concerned about a laceration on his tongue that was bleeding. He reports the laceration happened around 2 PM. He reports he put pressure on the area and it stopped bleeding right away. He reports sometime this evening the area started bleeding, he put pressure on the are and bleeding stopped. He is in the ED trying to see if there is anything else he can do to prevent the bleeding from reoccuring. He currently has no bleeding. Review of Systems Review of Systems Constitutional: Denies fever or chills [] Eyes: Denies change in visual acuity, redness, or eye pain [] HENT: Reports tongue laceration. Denies nasal congestion or sore throat [] Respiratory: Denies cough or shortness of breath [] Cardiovascular: No additional information not addressed in HPI [] GI: Denies abdominal pain, nausea, vomiting, bloody stools or diarrhea [] : Denies dysuria or hematuria [] Musculoskeletal: Denies back pain or joint pain [] Integument: Denies rash or skin lesions [] Neurologic: Denies headache, focal weakness or sensory changes [] All other systems were reviewed and found to be within normal limits, except as documented in this note. Allergies Allergies Allergies Coded Allergies Type Severity Reaction Last Updated Verified No Known Drug Allergies 05/20/19 No Physical Exam Physical Exam Constitutional: Well developed, well nourished, no acute distress, non-toxic appearance. [] HENT: Normocephalic, atraumatic, bilateral external ears normal, oropharynx moist, no oral exudates, nose normal. [] right lower mid lip with a tiny puncture wound with no bleeding. The laceration is not cutting through the tongue. Eyes: PERRLA, EOMI, conjunctiva normal, no discharge. [] Neck: Normal range of motion, no tenderness, supple, no stridor. [] Cardiovascular:Heart rate regular rhythm, no murmur [] Lungs & Thorax: Bilateral breath sounds clear to auscultation [] Abdomen: Bowel sounds normal, soft, no tenderness, no masses, no pulsatile masses. [] Skin: Warm, dry, no erythema, no rash. [] Back: No tenderness, no CVA tenderness. [] Extremities: No tenderness, no cyanosis, no clubbing, ROM intact, no edema. [] Neurologic: Alert and oriented X 3, normal motor function, normal sensory function, no focal deficits noted. [] Psychologic: Affect normal, judgement normal, mood normal. [] Current Patient Data Vital Signs Vital Signs Date Time Temp Pulse Resp B/P (MAP) Pulse Ox O2 Delivery O2 Flow Rate FiO2 11/04/19 22:21 97.6 94 18 140/67 (91) 97 Room Air 97.6 EKG EKG [] Radiology/Procedures Radiology/Procedures [] Course & Med Decision Making Course & Med Decision Making Pertinent Labs and Imaging studies reviewed. (See chart for details) His is a 88-year-old male patient presenting to the ED today concerned about a laceration on the right tongue that occurred at 2 PM. He is on Xarelto. He reports he had bleeding initially when the laceration occurred and the bleeding stop. He reports another episode of bleeding this evening but currently has completely stopped. Patient requesting something to help prevent the bleeding informed patient at this point the bleeding has stopped, we can check his labs but other than that we will leave the area alone considering the risk of restarting the bleeding if a procedure a performed. He was discharged to home. Follow-up with his own doctor in the course of the week, instructed to return to the Ed if bleeding re-occurs. Dragon Disclaimer Dragon Disclaimer This electronic medical record was generated, in whole or in part, using a voice recognition dictation system. Departure Departure Impression: Primary Impression: Laceration of tongue Disposition: 01 HOME, SELF-CARE Condition: STABLE Referrals: LEIGHANN GALLEGOS MD (PCP) Problem Qualifiers Primary Impression: Laceration of tongue Encounter type: initial encounter Qualified Codes: S01.512A - Laceration without foreign body of oral cavity, initial encounter ANYIGAGAN BELLA Nov 04, 2019 22:46
== END 2019-11-04 23:20 | disposition home or self-care (01) ==
LOC: ER 22:00
DX: S01.512A Laceration without foreign body of oral cavity, initial encounter (principal); I10 Essential (primary) hypertension; K21.9 Gastro-esophageal reflux disease without esophagitis; E78.00 Pure hypercholesterolemia, unspecified; X58.XXXA Exposure to other specified factors, initial encounter; Y93.89 Activity, other specified; Y92.89 Other specified places as the place of occurrence of the external cause; Y99.8 Other external cause status
CPT/HCPCS: 99281